=== PATIENT | female | born 1930 | race Caucasian/White ===

== ENCOUNTER → 2016-06-08 | Outpatient (CLI) | payer MEDICARE, OTHER ==
--- NOTE | 2016-06-08 15:10 | WOMENS IMAGING REPORT ---
EXAM DESCRIPTION: RIGHT SCREENING MAMMO W/CAD COMPLETED DATE/TIME: 06/08/2016 11:21 am REASON FOR STUDY: Z12.31 ROUTINE SCREENING MAMMO Z12.31 ENCNTR SCREEN MAMMOGRAM FOR MALIGNANT NEOPL ASM OF ARIADNE COMPARISON: Multiple since 2009 TECHNIQUE: Standard craniocaudal and mediolateral oblique views of the breast recorded using digital acquisition. LIMITATIONS: None. FINDINGS: BREAST: Right No masses, calcifications or architectural distortion. No areas of suspicion. Read with the assistance of CAD. .[facility] - R2 Cenova Version 1.3 .[facility] Imaging - R2 Cenova Version 1.3 .[facility] - R2 Cenova Version 2.4 .[facility] [place] - R2 Cenova Version 2.4 .[facility] - R2 [employer] Version 9.2 BREAST DENSITY: a. The breasts are almost entirely fatty. BIRAD: 1 NEGATIVE RECOMMENDATION: RECOMMENDATION: ROUTINE SCREENING. COMMENT: PATIENT NOTIFIED BY LETTER. The [employer] recommends an annual screening mammogram for women aged 40 years or over. Each patient will receive a reminder prior to the anniversary date of her mammogram. The [place] [employer] (ACR) has developed recommendations for screening MRI of the breast s in certain patient populations, to be used in conjunction with mammography. Breast MRI surveillance may be appropriate for women with more than 20% lifetime risk of developing breast cancer as determi milka by genetic testing, significant family history of the disease, or history of mantle radiation for Hodgkins Disease. ACR Practice Guidelines 2007. TECHNICAL DOCUMENTATION: FINDING NUMBER: (1) ASSESSMENT: (1) JOB ID: [id number] [employer]- All Rights Reserved
== END ==
LOC: WI 10:46
PROVIDERS: ATTEND Internal Medicine Geriatric Medicine
DX: Z12.31 Encounter for screening mammogram for malignant neoplasm of breast (principal)
CPT/HCPCS: G0202-52

== ENCOUNTER 2016-10-08 21:39 | Emergency (ER) | payer MEDICARE, OTHER ==
--- NOTE | 2016-10-09 00:38 | RADIOLOGY REPORT (SQ) ---
EXAM DESCRIPTION: CHEST PA/LAT COMPLETED DATE/TIME: 10/09/2016 12:00 am REASON FOR STUDY: productive cough COMPARISON: Chest x-ray 06/09/2010. EXAM PARAMETERS: NUMBER OF VIEWS: two views TECHNIQUE: Digital Frontal and Lateral radiographic views of the chest acquired. RADIATION DOSE: NA LIMITATIONS: none FINDINGS: LUNGS AND PLEURA: No consolidation, pleural effusion or pneumothorax. Hyperlucent lungs, suggestive of emphysema. MEDIASTINUM AND HILAR STRUCTURES: No masses or contour abnormalities. HEART AND VASCULAR STRUCTURES: Heart normal size. No evidence for failure. BONES: There is osteopenia. Multilevel degenerative changes are seen in the spine. Degenerative rhiannon nges also seen at the bilateral shoulders, left more than right. HARDWARE: Surgical clips at the left axilla. IMPRESSION: Emphysema. Otherwise, no acute radiographic finding in the chest. TECHNICAL DOCUMENTATION: JOB ID: [id number] [employer]- All Rights Reserved
[2016-10-09] MEDS ORDERED: AZITHROMYCIN 250 MG TABLET PO ONE (02:12)
[2016-10-09] MEDS ORDERED: GUAIFENESIN 600 MG TABLET.SA PO ONE (02:12)
--- NOTE | 2016-10-09 02:12 | ER Document Report ---
ED General - General Chief Complaint: Abdominal Pain >50 Stated Complaint: HEADACHE,COUGH Time Seen by Provider: 10/09/16 01:59 Mode of Arrival: Ambulatory Information source: Patient TRAVEL OUTSIDE OF THE [place] IN LAST 30 DAYS: No - HPI Notes: 86-year-old female with a 2 day history of cough and gradual onset and progression of pleuritic right greater than left chest wall pain associated with the cough. The patient reports no difficulty breathing or nausea or vomiting. She denies any abdominal pain, more pointing to her lower rib cage as the location of discomfort. At home she had a fever with temperature 100.4, but arrives afebrile. - Related Data Allergies/Adverse Reactions: codeine [Codeine] Allergy (Mild, Verified 08/22/12 09:02) meperidine HCl [From Demerol] Allergy (Mild, Verified 08/22/12 09:02) Penicillins Allergy (Mild, Verified 08/24/12 17:03) ITCHING Past Medical History - Social History Smoking Status: Never Smoker Frequency of alcohol use: None Drug Abuse: None Lives with: Alone Family History: Reviewed & Not Pertinent Patient has suicidal ideation: No Patient has homicidal ideation: No - Past Medical History Cardiac Medical History: Reports: Hx Hypertension Renal/ Medical History: Denies: Hx Peritoneal Dialysis Malignancy Medical History: Reports: Hx Breast Cancer Musculoskeltal Medical History: Reports Hx Arthritis Past Surgical History: Reports: Hx Appendectomy, Hx Hysterectomy, Hx Mastectomy - left, Hx Orthopedic Surgery - bilateral hip and left knee replacements Review of Systems - Review of Systems Notes: REVIEW OF SYSTEMS: CONSTITUTIONAL : Denies sweats. Denies recent illness. EENT: Denies eye, ear, throat, or mouth pain or symptoms. Denies nasal or sinus congestion or discharge. Denies throat, tongue, or mouth swelling or difficulty swallowing. CARDIOVASCULAR: Denies palpitations or racing or irregular heart beat. Denies ankle edema. RESPIRATORY: Denies shortness of breath, difficulty breathing, or wheezing. GASTROINTESTINAL: Denies abdominal pain or distention. Denies nausea, vomiting , or diarrhea. Denies blood in vomitus, stools, or per rectum. Denies black, tarry stools. Denies constipation. GENITOURINARY: Denies difficulty urinating, painful urination, burning, frequency, blood in urine, or discharge. FEMALE GENITOURINARY: Denies vaginal bleeding, heavy or abnormal periods, irregular periods. Denies vaginal discharge or odor. MUSCULOSKELETAL: Denies back or neck pain or stiffness. Denies joint pain or swelling. SKIN: Denies rash, lesions or sores. HEMATOLOGIC : Denies easy bruising or bleeding. LYMPHATIC: Denies swollen, enlarged glands. NEUROLOGICAL: Denies confusion or altered mental status. Denies passing out or loss of consciousness. Denies dizziness or lightheadedness. Denies headache. Denies weakness or paralysis or loss of use of either side. Denies problems with gait or speech. Denies sensory loss, numbness, or tingling. Denies seizures. PSYCHIATRIC: Denies anxiety or stress. Denies depression, suicidal ideation, or homicidal ideation. ALL OTHER SYSTEMS REVIEWED AND NEGATIVE. Dictation was performed using [employer] voice recognition software Physical Exam - Vital signs Vitals: Temp Pulse Resp BP Pulse Ox 97.8 F 87 16 115/63 93 10/08/16 21:41 10/08/16 21:41 10/08/16 21:41 10/08/16 21:41 10/08/16 21:41 - Notes Notes: PHYSICAL EXAMINATION: GENERAL: Well-appearing, well-nourished and in no acute distress. HEAD: Atraumatic, normocephalic. EYES: Pupils equal round and reactive to light, extraocular movements intact, conjunctiva are normal. ENT: oropharynx clear without exudates. Moist mucous membranes. Mild coryza noted. NECK: Normal range of motion, supple without lymphadenopathy LUNGS: Breath sounds clear to auscultation bilaterally and equal. No wheezes rales or rhonchi. Pain to the right lower costal margin right greater than left anteriorly and laterally. HEART: Regular rate and rhythm without murmurs ABDOMEN: Soft, nontender, nondistended abdomen. No guarding, no rebound. No masses appreciated. Female : deferred Musculoskeletal: Normal range of motion, no pitting or edema. No cyanosis. NEUROLOGICAL: Cranial nerves grossly intact. Normal speech, normal gait. Normal sensory, motor exams PSYCH: Normal mood, normal affect. SKIN: Warm, Dry, normal turgor, no rashes or lesions noted. Course - Re-evaluation Re-evalutation: 10/09/16 02:32 Chest x-ray negative for pneumonia. There is no hypoxia or wheezing noted on exam. No evidence for acute ID or ischemia or suggestion for cholecystitis or pulmonary embolus given the gradual onset of discomfort. Patient given Zithromax and Mucinex. 10/09/16 02:32 - Vital Signs Vital signs: Temp Pulse Resp BP Pulse Ox 97.8 F 87 16 115/63 93 10/08/16 21:41 10/08/16 21:41 10/08/16 21:41 10/08/16 21:41 10/08/16 21:41 - EKG Interpretation by Nc EKG shows normal: Sinus rhythm Additional EKG results interpreted by me: 10/09/16 02:21 EKG as interpreted by mi showed normal sinus rhythm heart rate of 87. There is no gross evidence for acute ID or ischemia noted. There is no change from previous EKG reviewed from 08/22/12. Discharge - Discharge Clinical Impression: Bronchitis, Pleurisy Condition: Stable Disposition: HOME, SELF-CARE Instructions: Pleurisy ([facility]), Bronchitis ([facility]) Additional Instructions: Take Tylenol as directed for fever or pain. Prescriptions: Azithromycin [Zithromax 250 mg Tablet] 250 mg PO DAILY #4 tablet Guaifenesin [Mucinex] 600 mg PO BIDP PRN #20 tablet.sa PRN Reason: Referrals: GRISELDA EVANS MD [Primary Care Provider] - Follow up as needed
[2016-10-09 02:36] VITALS: BP 105/54
--- NOTE | 2016-10-09 08:50 | EKG REPORT ---
SEVERITY:- BORDERLINE ECG - SINUS RHYTHM BORDERLINE T ABNORMALITIES, ANTERIOR LEADS : Confirmed by: Ekaterina Abraham 09-Oct-2016 08:48:55
== END 2016-10-09 02:37 | disposition home or self-care (01) ==
LOC: ER 21:39
DX: J40 Bronchitis, not specified as acute or chronic (principal); R09.1 Pleurisy; R51 Headache; R10.9 Unspecified abdominal pain; I10 Essential (primary) hypertension; Z88.6 Allergy status to analgesic agent; Z88.0 Allergy status to penicillin; Z85.3 Personal history of malignant neoplasm of breast; Z90.710 Acquired absence of both cervix and uterus; Z90.12 Acquired absence of left breast and nipple; Z96.643 Presence of artificial hip joint, bilateral; Z96.652 Presence of left artificial knee joint
CPT/HCPCS: 93005; 99284; 71020; 93010; A9270 ×2

== ENCOUNTER → 2017-06-09 | Outpatient (CLI) | payer MEDICARE, OTHER ==
--- NOTE | 2017-06-10 07:48 | WOMENS IMAGING REPORT ---
EXAM DESCRIPTION: 3D SCREENING MAMMO RIGHT COMPLETED DATE/TIME: 06/09/2017 9:09 am REASON FOR STUDY: ROUTINE SCREENING; Z12.31 Z12.31 ENCNTR SCREEN MAMMOGRAM FOR MALIGNANT NEOPLASM O F ARIADNE COMPARISON: Multiple since 2008 TECHNIQUE: Standard craniocaudal and mediolateral oblique views of the breast recorded using digital acquisition and breast tomosynthesis. LIMITATIONS: None. FINDINGS: BREAST: right No masses, calcifications or architectural distortion. No areas of suspicion. Read with the assistance of CAD. .[facility] - R2 Cenova Version 1.3 .[facility] - R2 Cenova Version 1.3 .[facility] - R2 Cenova Version 2.4 .[facility] [place] R2 Cenova Version 2.4 .[facility] - R2 Director Of Respiratory Therapy Version 9.2 IMPRESSION: NORMAL MAMMOGRAM. BIRADS 1. BREAST DENSITY: b. There are scattered areas of fibroglandular density. BIRAD: 1 Negative RECOMMENDATION: RECOMMENDATION: ROUTINE SCREENING. Please continue bilateral screening tomosynthesis in May 2018 COMMENT: The patient has been notified of the results by letter per MQSA requirements. Additional no tification policies are in place for contacting patient with suspicious or incomplete findings. Quality ID #[id number]: The [employer] recommends an annual screening mammogram for women aged 40 years or over. This facility utilizes a reminder system to ensure that all patients receive reminder letters, and/or direct phone calls for appointments. This includes reminders for routine scr eening mammograms, diagnostic mammograms, or other Breast Imaging Interventions when appropriate. Th is patient will be placed in the appropriate reminder system. The [employer] (ACR) has developed recommendations for screening MRI of the breast s in certain patient populations, to be used in conjunction with mammography. Breast MRI surveillance may be appropriate for women with more than 20% lifetime risk of developing breast cancer as determi milka by genetic testing, significant family history of the disease, or history of mantle radiation for Hodgkins Disease. ACR Practice Guidelines 2008. DBT Technology DBT is a type of tomographic mammography. With conventional mammography, overlapping breast tissue ma y make lesions difficult to detect, even with good compression. DBT uses an x-ray tube that rotates a round the breast, taking images at different angles. These images are then combined to create thin sl ices of the breast that the radiologist can view as a 3D reconstruction. The [employer] unit can perform full-field digital mammograms (2D imaging); or DBT (3D imaging); or both, in a combination mode that quickly performs both the mammogram and the tomosynthesis scan while the breast is still compressed. PQRS 6045F: Fluoroscopic imaging is not utilized for breast tomosynthesis. TECHNICAL DOCUMENTATION: FINDING NUMBER: (1) ASSESSMENT: (1) JOB ID: [id number] [employer]- All Rights Reserved
== END ==
LOC: WI 08:52
PROVIDERS: ATTEND Internal Medicine Geriatric Medicine
DX: Z12.31 Encounter for screening mammogram for malignant neoplasm of breast (principal)

== ENCOUNTER 2017-07-29 14:16 | Inpatient (IN) | payer MEDICARE, OTHER ==
--- NOTE | 2017-07-29 14:36 | ER Document Report ---
ED Extremity Problem, Lower - General Chief Complaint: Knee Pain Stated Complaint: FALL,LEFT KNEE PAIN Time Seen by Provider: 07/29/17 14:35 Notes: The patient is an 78-year-old female, past medical history left knee replacement , presents with left knee pain after she fell directly on the knee after getting out of her van and tripping on a tree branch. She was given 100 mcg of fentanyl with some relief of her pain, but it has returned. She denies open wounds, hip pain, LOC, head injury, numbness or tingling. TRAVEL OUTSIDE OF THE [place] IN LAST 30 DAYS: No - Related Data Allergies/Adverse Reactions: codeine [Codeine] Allergy (Mild, Verified 08/22/12 09:02) meperidine HCl [From Demerol] Allergy (Mild, Verified 08/22/12 09:02) Penicillins Allergy (Mild, Verified 08/24/12 17:03) ITCHING Past Medical History - General Information source: Patient - Social History Smoking Status: Unknown if Ever Smoked Family History: Reviewed & Not Pertinent - Past Medical History Cardiac Medical History: Reports: Hx Hypertension Renal/ Medical History: Denies: Hx Peritoneal Dialysis Malignancy Medical History: Reports: Hx Breast Cancer Musculoskeltal Medical History: Reports Hx Arthritis Past Surgical History: Reports: Hx Appendectomy, Hx Hysterectomy, Hx Mastectomy - left, Hx Orthopedic Surgery - bilateral hip and left knee replacements Review of Systems - Review of Systems Notes: REVIEW OF SYSTEMS: CONSTITUTIONAL: -fevers, -chills EENT: -eye pain, -difficulty swallowing, -nasal congestion CARDIOVASCULAR: -chest pain, -syncope. RESPIRATORY: -cough, -SOB GASTROINTESTINAL: -abdominal pain, -nausea, -vomiting, -diarrhea GENITOURINARY: -dysuria, -hematuria MUSCULOSKELETAL: +left knee pain, -back pain, -neck pain SKIN: -rash or skin lesions. HEMATOLOGIC: -easy bruising or bleeding. LYMPHATIC: -swollen, enlarged glands. NEUROLOGICAL: -altered mental status or loss of consciousness, -headache, - neurologic symptoms PSYCHIATRIC: -anxiety, -depression. ALL OTHER SYSTEMS REVIEWED AND NEGATIVE. Physical Exam - Vital signs Vitals: Temp Pulse Resp BP Pulse Ox 97.4 F 89 18 126/53 H 98 07/29/17 15:00 07/29/17 15:00 07/29/17 15:00 07/29/17 15:00 07/29/17 15:00 - Notes Notes: PHYSICAL EXAMINATION: GENERAL: Very uncomfortable. HEAD: Atraumatic, normocephalic. EYES: Pupils equal round and reactive to light, extraocular movements intact, sclera anicteric, conjunctiva are normal. ENT: nares patent, oropharynx clear without exudates. Moist mucous membranes. NECK: Normal range of motion, supple without lymphadenopathy LUNGS: Breath sounds clear to auscultation bilaterally and equal. No wheezes rales or rhonchi. HEART: Regular rate and rhythm without murmurs ABDOMEN: Soft, nontender, normoactive bowel sounds. No guarding, no rebound. No masses appreciated. EXTREMITIES: Tenderness over anterior left knee. Deformity of left knee and appears that her hardware is dislodged. No pitting or edema. No cyanosis. Strong distal pulses and sensation intact. Able to wiggle toes. NEUROLOGICAL: Cranial nerves grossly intact. Normal speech. Normal sensory and motor exams. PSYCH: Normal mood, normal affect. SKIN: Warm, Dry, normal turgor, no rashes or lesions noted. Course - Re-evaluation Re-evalutation: Pt with left femur fracture above her knee prostheses. She is NV intact distally. She is still in pain despite the 100 of fentanyl by EMS and 8 mg morphine. Will provide her with a dose of Dilaudid and begin to obtain preop labs, EKG and chest x-ray. 07/29/17 15:[address] Parra. He will consult on the patient. Will keep patient NPO after midnight. Spoke to patient's PMD, Dr. Burgess, and he will admit patient. - Vital Signs Vital signs: Temp Pulse Resp BP Pulse Ox 97.4 F 89 18 126/53 H 98 07/29/17 15:00 07/29/17 15:00 07/29/17 15:00 07/29/17 15:00 07/29/17 15:00 - Diagnostic Test Radiology reviewed: Image reviewed, Reports reviewed Radiology results interpreted by me: Knee x-ray: comminuted left distal femur fracture CXR: NAD - EKG Interpretation by Me EKG shows normal: Sinus rhythm, [place], Intervals, QRS Complexes, ST-T Waves Rate: Normal Discharge - Discharge Clinical Impression: Femur fracture, left Qualifiers: Encounter type: initial encounter Femur location: distal Fracture type: closed Fracture morphology: other fracture Qualified Code(s): S72.492A - Other fracture of lower end of left femur, initial encounter for closed fracture Condition: Stable Disposition: ADMITTED INPATIENT Admitting Provider: Aditya Unit Admitted: Medical Floor
[2017-07-29] MEDS ORDERED: MORPHINE SULFATE 10 MG/ML INJ IV ONE (14:40)
[2017-07-29] MEDS ORDERED: HYDROMORPHONE HCL INJ/PF 2 MG/ML AMPULE IV ONE (15:24)
--- NOTE | 2017-07-29 15:43 | RADIOLOGY REPORT (SQ) ---
EXAM DESCRIPTION: KNEE LEFT 2 VIEWS COMPLETED DATE/TIME: 07/29/2017 3:29 pm REASON FOR STUDY: left knee pain COMPARISON: None. NUMBER OF VIEWS: Two views. TECHNIQUE: AP and lateral radiographic images acquired of the left knee. LIMITATIONS: None. FINDINGS: MINERALIZATION: Normal. BONES: There is a total knee arthroplasty. There is a comminuted fracture of the distal femur at the arthroplasty. JOINT: No effusion. SOFT TISSUES: No soft tissue swelling. No radio-opaque foreign body. OTHER: No other significant finding. IMPRESSION: Comminuted fracture of the distal femur. TECHNICAL DOCUMENTATION: JOB ID: [id number] [employer]- All Rights Reserved Reading location - IP/workstation name: [email or web address]
--- NOTE | 2017-07-29 15:51 | RADIOLOGY REPORT (SQ) ---
EXAM DESCRIPTION: CHEST SINGLE VIEW COMPLETED DATE/TIME: 07/29/2017 3:42 pm REASON FOR STUDY: pre-op COMPARISON: Chest films 10/08/2016, 06/09/2010 EXAM PARAMETERS: NUMBER OF VIEWS: One view. TECHNIQUE: Single frontal radiographic view of the chest acquired. RADIATION DOSE: NA LIMITATIONS: Lordotic chest FINDINGS: LUNGS AND PLEURA: Lungs are hyperinflated and hyperlucent from obstructive disease. No ac bad [place] band infiltrates. No pleural effusion or pneumothorax. MEDIASTINUM AND HILAR STRUCTURES: No masses. Contour normal. HEART AND VASCULAR STRUCTURES: Cardiac silhouette size accentuated by patient positioning BONES: No acute findings. HARDWARE: None in the chest. OTHER: No other significant finding. IMPRESSION: NO ACUTE RADIOGRAPHIC FINDING IN THE CHEST. TECHNICAL DOCUMENTATION: JOB ID: [id number] [employer]- All Rights Reserved Reading location - IP/workstation name: [email or web address]
[2017-07-29] MEDS ORDERED: MORPHINE SULFATE 10 MG/ML INJ IV PRN (16:06)
[2017-07-29 16:31] LABS: ABSOLUTE BASOPHILS # (AUTO) 0.1 10^3/uL (0.0-0.2); ABSOLUTE EOSINOPHILS # (AUTO) 0.1 10^3/uL (0.0-0.6); ABSOLUTE MONOCYTES (AUTO) 0.8 10^3/uL (0.1-1.4); ABSOLUTE NEUT (AUTO) 8.9 10^3/uL (1.7-8.2); BASOPHILS % (AUTO) 0.6 % (0-2); EOSINOPHILS % (AUTO) 0.5 % (0-6); HEMATOCRIT 36.1 % (36.0-47.0); HEMOGLOBIN 12.3 g/dL (12.0-15.5); MEAN CORPUSCULAR HEMOGLOBIN 29.3 pg (27.0-33.4); MEAN CORPUSCULAR HGB CONC 34.2 g/dL (32.0-36.0); MEAN CORPUSCULAR VOLUME 86 fl (80-97); MONOCYTES % (AUTO) 7.7 % (3-13); PLATELET COUNT 278 10^3/uL (150-450); RED CELL DISTRIBUTION WIDTH 13.6 % (11.5-14.0); SEGMENTED NEUTROPHILS % (AUTO) 82.2 % (42-78); TOTAL CELLS COUNTED % (AUTO) 100 %; WHITE BLOOD COUNT 10.9 10^3/uL (4.0-10.5)
[2017-07-29 16:44] LABS: INTERNATIONAL RATION (INR) 0.98; PROTHROMBIN TIME 13.7 SEC (11.4-15.4)
[2017-07-29 16:45] LABS: PARTIAL THROMBOPLASTIN TIME 29.5 SEC (23.5-35.8)
[2017-07-29 16:50] LABS: ALANINE AMINOTRANSFERASE 26 U/L (9-52); ALBUMIN 3.5 g/dL (3.5-5.0); ALKALINE PHOSPHATASE 67 U/L (38-126); ANION GAP 6 (5-19); ASPARTATE AMINO TRANSFERASE 21 U/L (14-36); BILIRUBIN,DIRECT 0.4 mg/dL (0.0-0.4); BILIRUBIN,TOTAL 0.7 mg/dL (0.2-1.3); BLOOD UREA NITROGEN 17 mg/dL (7-20); CALCIUM 9.1 mg/dL (8.4-10.2); CARBON DIOXIDE 27 mmol/L (22-30); CHLORIDE 108 mmol/L (98-107); GLUCOSE 109 mg/dL (75-110); POTASSIUM 4.4 mmol/L (3.6-5.0); TOTAL PROTEIN 6.2 g/dL (6.3-8.2)
--- NOTE | 2017-07-29 19:52 | PDOC H&P ---
History of Present Illness Admission Date/PCP: 07/29/17 15:38 GRISELDA CRISTINA Patient complains of: Fall with subsequent left knee pain History of Present Illness: CHERY YOUNGBLOOD is a 86 year old female known to my practice presented to the ED with complaint of left knee pain and inability to walk. Patient reported falling after stumbling on a tree branch in her attempt to get off her van earlier today. She subsequently developed her presenting symptoms. She denied any preceding or associated chest pain, palpitation, dizziness, vertigo, loss of consciousness or headache. She reported some amount nausea with administration of opiate for pain management. 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 Past Medical History Cardiac Medical History: Reports: Hypertension Malignancy Medical History: Reports: Breast Cancer Musculoskeltal Medical History: Reports: Arthritis Past Surgical History Past Surgical History: Reports: Appendectomy, Hysterectomy, Mastectomy - left, Orthopedic Surgery - bilateral hip and left knee replacements Social History Smoking Status: Never Smoker Frequency of Alcohol Use: None Hx Recreational Drug Use: No Drugs: None - Advance Directive Resuscitation Status: Full Code Family History Family History: Reviewed & Not Pertinent Parental Family History Reviewed: Yes Children Family History Reviewed: Yes Sibling(s) Family History Reviewed.: Yes Medication/Allergy Home Medications: Amlodipine/Atorvastatin [Amlodipine-Atorvast 5-40 mg] 1 tab PO QHS 08/22/12 Atenolol [Tenormin 50 mg Tablet] 50 mg PO WBRKFST 08/22/12 Aspirin [Aspirin EC] 81 mg PO DAILY 07/29/17 Loratadine [Claritin 10 mg Tablet] 10 mg PO DAILY 07/29/17 Pentoxifylline [Trental 400 mg Tablet.sa] 400 mg PO BIDBS 07/29/17 Allergies/Adverse Reactions: codeine [Codeine] Allergy (Mild, Verified 08/22/12 09:02) meperidine HCl [From Demerol] Allergy (Mild, Verified 08/22/12 09:02) Penicillins Allergy (Mild, Verified 08/24/12 17:03) ITCHING Review of Systems Constitutional: ABSENT: chills, fever(s), headache(s), weight gain, weight loss Eyes: PRESENT: visual disturbances - use corrective glasses Ears: ABSENT: hearing changes Nose, Mouth, and Throat: ABSENT: as per HPI, headache(s), mouth pain, sore throat, vertigo, other Cardiovascular: ABSENT: chest pain, dyspnea on exertion, edema, orthropnea, palpitations Respiratory: ABSENT: cough, hemoptysis Gastrointestinal: ABSENT: abdominal pain, constipation, diarrhea, hematemesis, hematochezia, nausea, vomiting Musculoskeletal: PRESENT: deformity - related to multiple joint involvement with arthritis Integumentary: ABSENT: rash, wounds Neurological: PRESENT: abnormal gait - due to pain in left knee joint. ABSENT: as per HPI, abnormal movements, abnormal speech, confusion, convulsions, dizziness, focal weakness, frequent falls, lack of coordination, memory loss, numbness, paresthesias, restless legs, syncope, tingling, tremor(s), vertigo, weakness, other Psychiatric: ABSENT: anxiety, depression, homidical ideation, suicidal ideation Endocrine: ABSENT: cold intolerance, heat intolerance, polydipsia, polyuria Hematologic/Lymphatic: ABSENT: easy bleeding, easy bruising, lymphadenopathy Allergic/Immunologic: ABSENT: seasonal rhinorrhea Physical Exam Vital Signs: Temp Pulse Resp BP Pulse Ox 98.4 F 75 18 120/53 L 96 07/29/17 17:20 07/29/17 17:20 07/29/17 17:20 07/29/17 17:20 07/29/17 17:20 Intake & Output 07/28/17 07/29/17 07/30/17 06:59 06:59 06:59 Weight 173 kg General appearance: PRESENT: cooperative, mild distress - due to ongoing left knee joint pain Head exam: PRESENT: atraumatic, normocephalic Eye exam: PRESENT: conjunctiva pink, EOMI, PERRLA. ABSENT: scleral icterus Ear exam: PRESENT: normal external ear exam Mouth exam: PRESENT: moist, tongue midline Throat exam: ABSENT: post pharyngeal erythema, tonsillar erythema, tonsillar exudate, tonsillogmegaly, other Neck exam: PRESENT: full ROM. ABSENT: carotid bruit, JVD, lymphadenopathy, thyromegaly Respiratory exam: PRESENT: clear to auscultation brian Cardiovascular exam: PRESENT: RRR. ABSENT: diastolic murmur, rubs, systolic murmur Pulses: PRESENT: normal dorsalis pedis pul, +2 pedal pulses bilateral Vascular exam: PRESENT: normal capillary refill. ABSENT: pallor GI/Abdominal exam: PRESENT: normal bowel sounds, soft. ABSENT: distended, guarding, mass, organolmegaly, rebound, tenderness Rectal exam: PRESENT: deferred Extremities exam: PRESENT: tenderness - left knee joint. ABSENT: pedal edema Musculoskeletal exam: PRESENT: deformity - left knee joint, tenderness - left knee joint. ABSENT: ambulatory - due to left knee pain, full ROM - across left knee joint Neurological exam: PRESENT: alert, awake, oriented to person, oriented to place , oriented to time, oriented to situation, CN II-XII grossly intact. ABSENT: motor sensory deficit Psychiatric exam: PRESENT: appropriate affect, normal mood. ABSENT: homicidal ideation, suicidal ideation Skin exam: PRESENT: dry, intact, warm. ABSENT: cyanosis, rash Results Laboratory Results: 07/29/17 16:03 07/29/17 16:03 07/29/17 07/29/17 16:03 16:03 WBC 10.9 H RBC 4.20 Hgb 12.3 Hct 36.1 MCV 86 MCH 29.3 MCHC 34.2 RDW 13.6 Plt Count 278 Seg Neutrophils % 82.2 H Lymphocytes % 9.0 L Monocytes % 7.7 Eosinophils % 0.5 Basophils % 0.6 Absolute Neutrophils 8.9 H Absolute Lymphocytes 1.0 Absolute Monocytes 0.8 Absolute Eosinophils 0.1 Absolute Basophils 0.1 Sodium 141.0 Potassium 4.4 Chloride 108 H Carbon Dioxide 27 Anion Gap 6 BUN 17 Creatinine 0.68 Est GFR ( Amer) > 60 Est GFR (Non-Af Amer) > 60 Glucose 109 Calcium 9.1 Total Bilirubin 0.7 AST 21 ALT 26 Alkaline Phosphatase 67 Total Protein 6.2 L Albumin 3.5 Impressions: Knee X-Ray 07/29/17 14:35 IMPRESSION: Comminuted fracture of the distal femur. Chest X-Ray 07/29/17 15:22 IMPRESSION: NO ACUTE RADIOGRAPHIC FINDING IN THE CHEST. Assessment & Plan - Diagnosis (1) Fall due to stumbling Qualifiers: Encounter type: initial encounter Qualified Code(s): W01.0XXA - Fall on same level from slipping, tripping and stumbling without subsequent striking against object, initial encounter Is this a current diagnosis for this admission?: Yes Plan: See admitting attending physician orders. (2) Fracture of distal femur Qualifiers: Encounter type: initial encounter Fracture type: closed Fracture morphology: unspecified fracture morphology Laterality: left Qualified Code( s): S72.402A - Unspecified fracture of lower end of left femur, initial encounter for closed fracture Is this a current diagnosis for this admission?: Yes Plan: See admitting attending physician orders. (3) HTN (hypertension) Qualifiers: Hypertension type: essential hypertension Qualified Code(s): I10 - Essential (primary) hypertension Is this a current diagnosis for this admission?: Yes Plan: See admitting attending physician orders. (4) COPD (chronic obstructive pulmonary disease) Qualifiers: COPD type: unspecified COPD Qualified Code(s): J44.9 - Chronic obstructive pulmonary disease, unspecified Is this a current diagnosis for this admission?: Yes Plan: See admitting attending physician orders. (5) HLD (hyperlipidemia) Qualifiers: Hyperlipidemia type: pure hypercholesterolemia Qualified Code(s): E78.00 - Pure hypercholesterolemia, unspecified; E78.0 - Pure hypercholesterolemia Is this a current diagnosis for this admission?: Yes Plan: See admitting attending physician orders. (6) Osteoarthritis involving multiple joints on both sides of body Is this a current diagnosis for this admission?: Yes Plan: See admitting attending physician orders. - Time Time Spent: 50 to 70 Minutes Medications reviewed and adjusted accordingly: Yes Anticipated discharge: SNF - for short term rehabilitation Within: Other - Inpatient Certification Based on my medical assessment, after consideration of the patient's comorbidities, presenting symptoms, or acuity I expect that the services needed warrant INPATIENT care.: Yes I certify that my determination is in accordance with my understanding of Medicare's requirements for reasonable and necessary INPATIENT services [42 CFR 412.3e].: Yes Medical Necessity: Need Close Monitoring Due to Risk of Patient Decompensation, Need For IV Fluids, Need For Continuous Telemetry Monitoring, Need for Pain Control, Need for Surgery, Risk of Complication if Not Cared For in Hospital Post Hospital Care: D/C or Transfer Summary - Plan Summary Plan Summary: See admitting attending physician orders.
[2017-07-29] MEDS ORDERED: NORMAL SALINE 1000 ML 1,000 ML IV PRN (19:55)
--- NOTE | 2017-07-29 19:59 | PDOC CONSULTATION ---
History of Present Illness Admission Date/PCP: 07/29/17 15:38 GRISELDA EVANS Patient complains of: Left lower extremity pain and deformity. History of Present Illness: 86-year-old female status post fall with inability to weight-bear and deformity of the left knee. Patient states she had that left total knee arthroplasty placed about 10 years ago back in [place]. Denies any numbness or tingling or paresthesias. Denies any left knee pain prior to the fall. Upon arrival to [facility] evaluation and x-rays confirm the patient has a comminuted periprosthetic femur fractures around the left total knee. Past Medical History Cardiac Medical History: Reports: Hypertension Malignancy Medical History: Reports: Breast Cancer Musculoskeltal Medical History: Reports: Arthritis Past Surgical History Past Surgical History: Reports: Appendectomy, Hysterectomy, Mastectomy - left, Orthopedic Surgery - bilateral hip and left knee replacements Social History Smoking Status: Never Smoker Frequency of Alcohol Use: None Hx Recreational Drug Use: No Drugs: None - Advance Directive Resuscitation Status: Full Code Family History Family History: Reviewed & Not Pertinent Parental Family History Reviewed: No Children Family History Reviewed: No Sibling(s) Family History Reviewed.: No Medication/Allergy Home Medications: Amlodipine/Atorvastatin [Amlodipine-Atorvast 5-40 mg] 1 tab PO QHS 08/22/12 Atenolol [Tenormin 50 mg Tablet] 50 mg PO WBRKFST 08/22/12 Aspirin [Aspirin EC] 81 mg PO DAILY 07/29/17 Loratadine [Claritin 10 mg Tablet] 10 mg PO DAILY 07/29/17 Pentoxifylline [Trental 400 mg Tablet.sa] 400 mg PO BIDBS 07/29/17 Allergies/Adverse Reactions: codeine [Codeine] Allergy (Mild, Verified 08/22/12 09:02) meperidine HCl [From Demerol] Allergy (Mild, Verified 08/22/12 09:02) Penicillins Allergy (Mild, Verified 08/24/12 17:03) ITCHING Review of Systems All systems: as per PMH Physical Exam Vital Signs: Temp Pulse Resp BP Pulse Ox 36.9 C 75 18 120/53 L 96 07/29/17 17:20 07/29/17 17:20 07/29/17 17:20 07/29/17 17:20 07/29/17 17:20 Intake & Output 07/28/17 07/29/17 07/30/17 06:59 06:59 06:59 Weight 78.653 kg General appearance: PRESENT: no acute distress Adult Front & Back Image: 1 - Tender palpation and swelling around the left knee and distal thigh. Warm to touch. Mild deformity. Neurovascular intact distally with good sensation to light touch and capillary refill. Results Laboratory Results: 07/29/17 16:03 07/29/17 16:03 07/29/17 07/29/17 16:03 16:03 WBC 10.9 H RBC 4.20 Hgb 12.3 Hct 36.1 MCV 86 MCH 29.3 MCHC 34.2 RDW 13.6 Plt Count 278 Seg Neutrophils % 82.2 H Lymphocytes % 9.0 L Monocytes % 7.7 Eosinophils % 0.5 Basophils % 0.6 Absolute Neutrophils 8.9 H Absolute Lymphocytes 1.0 Absolute Monocytes 0.8 Absolute Eosinophils 0.1 Absolute Basophils 0.1 Sodium 141.0 Potassium 4.4 Chloride 108 H Carbon Dioxide 27 Anion Gap 6 BUN 17 Creatinine 0.68 Est GFR ( Amer) > 60 Est GFR (Non-Af Amer) > 60 Glucose 109 Calcium 9.1 Total Bilirubin 0.7 AST 21 ALT 26 Alkaline Phosphatase 67 Total Protein 6.2 L Albumin 3.5 Impressions: Knee X-Ray 07/29/17 14:35 IMPRESSION: Comminuted fracture of the distal femur. Chest X-Ray 07/29/17 15:22 IMPRESSION: NO ACUTE RADIOGRAPHIC FINDING IN THE CHEST. Status: Image reviewed by me Assessment & Plan - Diagnosis (1) Periprosthetic fracture around internal prosthetic left knee joint Qualifiers: Encounter type: initial encounter Qualified Code(s): M97.12XA - Periprosthetic fracture around internal prosthetic left knee joint, initial encounter; T84.043A - Periprosthetic fracture around internal prosthetic left knee joint, initial encounter Is this a current diagnosis for this admission?: Yes Plan: 86-year-old female with comminuted periprosthetic fracture around the femoral component of her left total knee arthroplasty. Injury occurred status post fall. The patient need to proceed with open reduction internal fixation of periprosthetic femur fracture on the left. Risk and benefits were discussed and the patient agreed and consented. In the meantime continue knee immobilizer and ice and elevation. Will type and screen her for the OR tomorrow and plan to proceed with surgery anytime afternoon therefore she will be n.p.o. after midnight and started on IV fluids.
--- NOTE | 2017-07-29 20:03 | RADIOLOGY REPORT (SQ) ---
EXAM DESCRIPTION: CT LT LOWER EXTREMITY WITHOUT COMPLETED DATE/TIME: 07/29/2017 7:49 pm REASON FOR STUDY: periprosthetic fracture COMPARISON: None. TECHNIQUE: Axial imaging performed through the left knee with reformatted coronal and sagittal imagi ng windowed for bone and soft tissues. Images saved to PACS. 3D IMAGING: Were 3D images as MIP, SSD, or volume rendering performed at the work station? Yes. All CT scanners at this facility use dose modulation, iterative reconstruction, and/or weight based d osing when appropriate to reduce radiation dose to as low as reasonably achievable (ALARA). [facility]: Dose Right [facility]: CareDose [facility]: Dose Right [facility]: Teradose 4D [facility]: [employer] LIMITATIONS: None. RADIATION DOSE: CT Rad equipment meets quality standard of care and radiation dose reduction techniq ues were employed. CTDIvol: 4.1 mGy. DLP: 123 mGy-cm. mGy. FINDINGS: There is a comminuted fracture in the distal left femoral metaphysis which is 1.5 cm media lly displaced and 1.0 cm anteriorly displaced. Multiple fracture fragments are present and there is approximately 6 to 8 mm of impaction into the superior aspect of the femoral arthroplasty component. The arthroplasty hardware is otherwise intact and normally aligned. OTHER: No other significant finding. IMPRESSION: There is a comminuted fracture in the distal left femoral metaphysis which is 1.5 cm med ially displaced and 1.0 cm anteriorly displaced. Multiple fracture fragments are present and there i s approximately 6 to 8 mm of impaction into the superior aspect of the femoral arthroplasty component . The arthroplasty hardware is otherwise intact and normally aligned. TECHNICAL DOCUMENTATION: JOB ID: [id number] [place]-72 Quality ID # [id number]: Final reports with documentation of one or more dose reduction techniques (e.g., Au tomated exposure control, adjustment of the mA and/or kV according to patient size, use of iterative reconstruction technique) 2010 [employer]- All Rights Reserved Reading location - IP/workstation name: [email or web address]
[2017-07-29] MEDS ORDERED: ONDANSETRON HCL INJ/PF 4 MG/2 ML SDV ONE (20:05)
[2017-07-29] MEDS: MORPHINE SULFATE 10 MG/ML INJ IV PRN (20:35)
--- NOTE | 2017-07-29 21:55 | EKG REPORT ---
SEVERITY:- NORMAL ECG - SINUS RHYTHM : Confirmed by: Ekaterina Abraham 29-Jul-2017 21:54:09
[2017-07-29] MEDS ORDERED: AMLODIPINE PO SCH (22:00)
[2017-07-29] MEDS ORDERED: ATORVASTATIN PO SCH (22:00)
[2017-07-29] MEDS: ATORVASTATIN CALCIUM 40 MG TABLET PO SCH (22:07)
[2017-07-29] MEDS: AMLODIPINE BESYLATE 5 MG TABLET PO SCH (22:07)
[2017-07-30] MEDS: MORPHINE SULFATE 10 MG/ML INJ IV PRN ×3 (00:27→08:48)
[2017-07-30] MEDS: LANSOPRAZOLE 30 MG TAB.RAP.DR PO SCH (05:26)
[2017-07-30 07:38] LABS: ABSOLUTE LYMPHOCYTES (AUTO) 1.3 10^3/uL (0.5-4.7); ABSOLUTE MONOCYTES (AUTO) 1.3 10^3/uL (0.1-1.4); ABSOLUTE NEUT (AUTO) 9.3 10^3/uL (1.7-8.2); BASOPHILS % (AUTO) 0.2 % (0-2); EOSINOPHILS % (AUTO) 0.3 % (0-6); HEMATOCRIT 27.9 % (36.0-47.0); MEAN CORPUSCULAR HEMOGLOBIN 29.6 pg (27.0-33.4); MEAN CORPUSCULAR HGB CONC 34.5 g/dL (32.0-36.0); MEAN CORPUSCULAR VOLUME 86 fl (80-97); PLATELET COUNT 236 10^3/uL (150-450); RED BLOOD COUNT 3.25 10^6/uL (3.72-5.28); RED CELL DISTRIBUTION WIDTH 13.4 % (11.5-14.0); SEGMENTED NEUTROPHILS % (AUTO) 77.5 % (42-78); TOTAL CELLS COUNTED % (AUTO) 100 %
[2017-07-30 07:45] LABS: HEMOGLOBIN 9.6 g/dL (12.0-15.5)
[2017-07-30 07:58] LABS: ANION GAP 5 (5-19); BLOOD UREA NITROGEN 20 mg/dL (7-20); CALCIUM 8.9 mg/dL (8.4-10.2); CARBON DIOXIDE 27 mmol/L (22-30); CHLORIDE 107 mmol/L (98-107); GLUCOSE 99 mg/dL (75-110); POTASSIUM 4.6 mmol/L (3.6-5.0); SODIUM 139.4 mmol/L (137-145)
[2017-07-30] MEDS: ATENOLOL 50 MG TABLET PO SCH (08:46)
[2017-07-30] MEDS: ONDANSETRON HCL INJ/PF 4 MG/2 ML SDV IV PRN (08:48)
--- NOTE | 2017-07-30 09:55 | RADIOLOGY REPORT (SQ) ---
EXAM DESCRIPTION: WRIST LEFT 2 VIEWS COMPLETED DATE/TIME: 07/30/2017 9:07 am REASON FOR STUDY: L wrist swelling/pain COMPARISON: Left wrist three views NUMBER OF VIEWS: Left wrist two views TECHNIQUE: AP and lateral radiographic images acquired of the left wrist. LIMITATIONS: None. FINDINGS: MINERALIZATION: Osteoporotic BONES: No acute fracture or dislocation. No worrisome bone lesions. Normal alignment. SOFT TISSUES: Diffuse soft tissue swelling. OTHER: There is advanced osteoarthritis at the 1st carpometacarpal joint, with a [id number] appeara nce and intra-articular loose bodies. IMPRESSION: Advanced osteoarthritis at the 1st carpometacarpal joint No acute fracture TECHNICAL DOCUMENTATION: JOB ID: [id number] [employer]- All Rights Reserved Reading location - IP/workstation name: [email or web address]
[2017-07-30] MEDS ORDERED: ENOXAPARIN SODIUM INJ 40 MG/0.4 ML DISP.SYRIN SUBCUT SCH (10:00)
[2017-07-30] MEDS ORDERED: MORPHINE SULFATE 10 MG/ML INJ ONE (11:52)
[2017-07-30] MEDS ORDERED: KETAMINE HCL INJ 500 MG/10 ML VIAL ONE (12:23)
[2017-07-30] MEDS ORDERED: FENTANYL CITRATE INJ/PF 100 MCG/2 ML AMPUL ONE ×2 (12:23)
[2017-07-30] MEDS ORDERED: MIDAZOLAM 2 MG/2 ML INJ ONE (12:23)
[2017-07-30] MEDS ORDERED: ACETAMINOPHEN 100 ML IV ONE (12:24)
[2017-07-30] MEDS ORDERED: PROPOFOL INJ 200 MG/20 ML VIAL IV ONE (12:24)
[2017-07-30] MEDS ORDERED: DEXMEDETOMIDINE INJ 80 MCG/20 ML VIAL IV ONE (12:55)
[2017-07-30] MEDS ORDERED: EPHEDRINE SULFATE INJ 50 MG/1 ML AMPULE ONE (12:55)
[2017-07-30] MEDS ORDERED: CEFAZOLIN INJ 1 GM VIAL ONE (13:05)
[2017-07-30] MEDS ORDERED: DEXAMETHASONE SOD PHOSPHATE INJ 4 MG/1 ML VIAL ONE (13:26)
[2017-07-30] MEDS ORDERED: ONDANSETRON HCL INJ/PF 4 MG/2 ML SDV ONE (13:26)
[2017-07-30] MEDS ORDERED: LIDOCAINE 2% INJ-PF (20 MG/ML) 2 ML AMPUL ONE (13:26)
[2017-07-30] MEDS ORDERED: SUCCINYLCHOLINE CHLORIDE INJ 200 MG/10 ML VIAL ONE (13:26)
[2017-07-30] MEDS ORDERED: PHENYLEPHRINE HCL INJ/PF 10 MG/1 ML SDV ONE (13:26)
[2017-07-30] MEDS ORDERED: METOCLOPRAMIDE HCL INJ/PF 10 MG/2 ML SDV ONE (13:26)
[2017-07-30] MEDS ORDERED: FENTANYL CITRATE INJ/PF 100 MCG/2 ML AMPUL IV PRN ×3 (15:10)
[2017-07-30] MEDS ORDERED: MEPERIDINE HCL/PF INJ 25 MG/1 ML DISP.SYRIN IV PRN (15:10)
[2017-07-30] MEDS ORDERED: ONDANSETRON HCL INJ/PF 4 MG/2 ML SDV IV PRN ×2 (15:10→16:55)
[2017-07-30] MEDS ORDERED: OXYCODONE-ACETAMINOPHEN 5-325 MG TABLET PO PRN ×4 (15:10→16:58)
[2017-07-30] MEDS ORDERED: PROMETHAZINE HCL INJ 25 MG/1 ML VIAL IV PRN ×2 (15:10)
[2017-07-30] MEDS ORDERED: DIPHENHYDRAMINE HCL 50 MG/ML VIAL IV PRN (15:10)
[2017-07-30] MEDS ORDERED: POTASSI CL 20 MEQ/D5NS 1L 20 MEQ/1,000 ML RTUINJ IV PRN (16:46)
[2017-07-30] MEDS ORDERED: MAG HYDROX/AL HYDROX/SIMETH SUSP 30 ML UDCUP PO PRN (16:55)
[2017-07-30] MEDS ORDERED: NORMAL SALINE 250 ML IV PRN (17:05)
--- NOTE | 2017-07-30 18:20 | RADIOLOGY REPORT (SQ) ---
EXAM DESCRIPTION: NO CHG FLUORO; FEMUR LEFT COMPLETED DATE/TIME: 07/30/2017 6:03 pm REASON FOR STUDY: ORIF LEFT DISTAL FEMUR COMPARISON: None. FLUOROSCOPY TIME: 3.3 minutes 14 Images saved to PACS LIMITATIONS: None. PROCEDURE: ORIF half distal femoral fracture. FINDINGS: Images obtained with fluoro document the open reduction and internal fixation. A medullar y maira extends down to the knee. This is secured by a transverse screw. Additional cannulated screws are present in the distal femur at the knee. IMPRESSION: ORIF distal femoral fracture. Refer to operative note for further detail. COMMENT: PQRS 6045F: Fluoroscopy time of the procedure is documented in the report. TECHNICAL DOCUMENTATION: JOB ID: [id number] [employer]- All Rights Reserved Reading location - IP/workstation name: [email or web address]
--- NOTE | 2017-07-30 18:20 | RADIOLOGY REPORT (SQ) ---
EXAM DESCRIPTION: NO CHG FLUORO; FEMUR LEFT COMPLETED DATE/TIME: 07/30/2017 6:03 pm REASON FOR STUDY: ORIF LEFT DISTAL FEMUR COMPARISON: None. FLUOROSCOPY TIME: 3.3 minutes 14 Images saved to PACS LIMITATIONS: None. PROCEDURE: ORIF half distal femoral fracture. FINDINGS: Images obtained with fluoro document the open reduction and internal fixation. A medullar y maira extends down to the knee. This is secured by a transverse screw. Additional cannulated screws are present in the distal femur at the knee. IMPRESSION: ORIF distal femoral fracture. Refer to operative note for further detail. COMMENT: PQRS 6045F: Fluoroscopy time of the procedure is documented in the report. TECHNICAL DOCUMENTATION: JOB ID: [id number] [employer]- All Rights Reserved Reading location - IP/workstation name: [email or web address]
--- NOTE | 2017-07-30 18:57 | PDOC PROGRESS REPORT ---
Subjective Progress Note for:: 07/30/17 Subjective:: Patient seen post operative period in her room. s/p distal comminuted displaced femoral fracture ORIF procedure. Denied any current pain at site of surgery. No chest pain or difficulty with breathing. Oxygen saturation in low 90 range on supplementation at 4L/min. No nausea or vomiting. She is schedule for 2 units PRBC transfusion. Reason For Visit: FALL DUE TO STUMBLING; LEFT CLOSED DISTAL FEMORAL Physical Exam Vital Signs: Temp Pulse Resp BP Pulse Ox 97.7 F 80 13 110/47 L 94 07/30/17 18:00 07/30/17 18:00 07/30/17 18:00 07/30/17 18:00 07/30/17 18:00 Intake & Output 07/29/17 07/30/17 07/31/17 06:59 06:59 06:59 Intake Total 0 2500 Output Total 500 Balance 0 2000 Weight 78.653 kg General appearance: PRESENT: cooperative, well-developed, well-nourished Head exam: PRESENT: atraumatic, normocephalic Eye exam: PRESENT: conjunctiva pink, EOMI, PERRLA. ABSENT: scleral icterus Mouth exam: PRESENT: moist Respiratory exam: PRESENT: clear to auscultation brian Cardiovascular exam: PRESENT: RRR. ABSENT: diastolic murmur, rubs, systolic murmur GI/Abdominal exam: PRESENT: normal bowel sounds, soft. ABSENT: distended, guarding, mass, organolmegaly, rebound, tenderness Extremities exam: PRESENT: other - external immobilizer to left lower extremities.. ABSENT: pedal edema Neurological exam: PRESENT: alert, awake, oriented to person, oriented to place , oriented to time, oriented to situation, CN II-XII grossly intact. ABSENT: motor sensory deficit Skin exam: PRESENT: dry, warm, other - surgical site dressing intact.. ABSENT: cyanosis, rash Results Laboratory Results: 07/30/17 06:59 07/30/17 06:59 07/29/17 07/30/17 07/30/17 20:55 06:59 06:59 WBC 12.0 H RBC 3.25 L Hgb 9.6 L D Hct 27.9 L MCV 86 MCH 29.6 MCHC 34.5 RDW 13.4 Plt Count 236 Seg Neutrophils % 77.5 Lymphocytes % 11.0 L Monocytes % 11.0 Eosinophils % 0.3 Basophils % 0.2 Absolute Neutrophils 9.3 H Absolute Lymphocytes 1.3 Absolute Monocytes 1.3 Absolute Eosinophils 0.0 Absolute Basophils 0.0 Sodium 139.4 Potassium 4.6 Chloride 107 Carbon Dioxide 27 Anion Gap 5 BUN 20 Creatinine 0.72 Est GFR ( Amer) > 60 Est GFR (Non-Af Amer) > 60 Glucose 99 Calcium 8.9 Blood Type B POSITIVE Antibody Screen NEGATIVE Impressions: Lower Extremity CT 07/29/17 00:00 IMPRESSION: There is a comminuted fracture in the distal left femoral metaphysis which is 1.5 cm medially displaced and 1.0 cm anteriorly displaced. Multiple fracture fragments are present and there is approximately 6 to 8 mm of impaction into the superior aspect of the femoral arthroplasty component. The arthroplasty hardware is otherwise intact and normally aligned. Knee X-Ray 07/29/17 14:35 IMPRESSION: Comminuted fracture of the distal femur. Chest X-Ray 07/29/17 15:22 IMPRESSION: NO ACUTE RADIOGRAPHIC FINDING IN THE CHEST. Femur X-Ray 07/30/17 00:00 IMPRESSION: ORIF distal femoral fracture. Refer to operative note for further detail. Fluoroscopy 07/30/17 00:00 IMPRESSION: ORIF distal femoral fracture. Refer to operative note for further detail. Wrist X-Ray 07/30/17 08:36 IMPRESSION: Advanced osteoarthritis at the 1st carpometacarpal joint No acute fracture Assessment & Plan - Diagnosis (1) Fall due to stumbling Qualifiers: Encounter type: initial encounter Qualified Code(s): W01.0XXA - Fall on same level from slipping, tripping and stumbling without subsequent striking against object, initial encounter Is this a current diagnosis for this admission?: Yes (2) Fracture of distal femur Qualifiers: Encounter type: initial encounter Fracture type: closed Fracture morphology: unspecified fracture morphology Laterality: left Qualified Code( s): S72.402A - Unspecified fracture of lower end of left femur, initial encounter for closed fracture Is this a current diagnosis for this admission?: Yes (3) HTN (hypertension) Qualifiers: Hypertension type: essential hypertension Qualified Code(s): I10 - Essential (primary) hypertension Is this a current diagnosis for this admission?: Yes (4) COPD (chronic obstructive pulmonary disease) Qualifiers: COPD type: unspecified COPD Qualified Code(s): J44.9 - Chronic obstructive pulmonary disease, unspecified Is this a current diagnosis for this admission?: Yes (5) HLD (hyperlipidemia) Qualifiers: Hyperlipidemia type: pure hypercholesterolemia Qualified Code(s): E78.00 - Pure hypercholesterolemia, unspecified; E78.0 - Pure hypercholesterolemia Is this a current diagnosis for this admission?: Yes (6) Osteoarthritis involving multiple joints on both sides of body Is this a current diagnosis for this admission?: Yes - Time Time Spent with patient: 25-34 minutes Medications reviewed and adjusted accordingly: Yes Anticipated discharge: SNF - for short term rehabilitation Within: Other - Inpatient Certification Based on my medical assessment, after consideration of the patient's comorbidities, presenting symptoms, or acuity I expect that the services needed warrant INPATIENT care.: Yes I certify that my determination is in accordance with my understanding of Medicare's requirements for reasonable and necessary INPATIENT services [42 CFR 412.3e].: Yes Medical Necessity: Need Close Monitoring Due to Risk of Patient Decompensation, Need For IV Fluids, Need For Continuous Telemetry Monitoring, Need for Pain Control, Need for Surgery, Risk of Complication if Not Cared For in Hospital Post Hospital Care: D/C or Transfer Summary - Plan Summary Plan Summary: Continue on current management. I discussed issue of DVT prophylaxis with surgical team. She will start on Xarelto therapy. I will D/C Lovenox. Recommend bedside incentive spirometry usage to patient. Dr Beasley will cover my service till 08/02/2017.
[2017-07-30] MEDS: CEFAZOLIN 2 GM/D5W RTU 2 GM/50 ML RTUPB IV SCH ×2 (20:04→23:46)
[2017-07-30] MEDS: SENNOSIDES/DOCUSATE 8.6-50 MG 1 EACH TABLET PO SCH (20:06)
[2017-07-30] MEDS: RIVAROXABAN 10 MG TABLET PO SCH (22:19)
[2017-07-30] MEDS: ATORVASTATIN CALCIUM 40 MG TABLET PO SCH (22:19)
[2017-07-30] MEDS: AMLODIPINE BESYLATE 5 MG TABLET PO SCH (22:19)
[2017-07-31] MEDS ORDERED: VANCOMYCIN HCL 1,000 MG in DEXTROSE 5%-WATER 250 ML IV ONE (04:47)
[2017-07-31] MEDS: TRAMADOL HCL 50 MG TABLET PO PRN ×2 (05:38→11:53)
[2017-07-31] MEDS: LANSOPRAZOLE 30 MG TAB.RAP.DR PO SCH (05:38)
[2017-07-31 09:41] LABS: HEMATOCRIT 30.4 % (36.0-47.0); HEMOGLOBIN 10.6 g/dL (12.0-15.5); MEAN CORPUSCULAR HEMOGLOBIN 30.1 pg (27.0-33.4); MEAN CORPUSCULAR VOLUME 86 fl (80-97); PLATELET COUNT 180 10^3/uL (150-450); RED BLOOD COUNT 3.53 10^6/uL (3.72-5.28); RED CELL DISTRIBUTION WIDTH 13.7 % (11.5-14.0); WHITE BLOOD COUNT 13.9 10^3/uL (4.0-10.5)
[2017-07-31 10:00] LABS: ANION GAP 6 (5-19); BLOOD UREA NITROGEN 19 mg/dL (7-20); CALCIUM 8.7 mg/dL (8.4-10.2); CARBON DIOXIDE 26 mmol/L (22-30); CHLORIDE 105 mmol/L (98-107); GLUCOSE 127 mg/dL (75-110); POTASSIUM 4.5 mmol/L (3.6-5.0); SODIUM 136.5 mmol/L (137-145)
[2017-07-31] MEDS: ATENOLOL 50 MG TABLET PO SCH (10:48)
[2017-07-31] MEDS: PRENATAL VITAMIN W DHA CAPSULE PO SCH (10:48)
[2017-07-31] MEDS: CEFAZOLIN 2 GM/D5W RTU 2 GM/50 ML RTUPB IV SCH ×4 (10:49→23:22)
[2017-07-31] MEDS: SENNOSIDES/DOCUSATE 8.6-50 MG 1 EACH TABLET PO SCH ×2 (10:49→17:27)
[2017-07-31] MEDS: MORPHINE SULFATE 10 MG/ML INJ IV PRN ×2 (12:39→20:03)
--- NOTE | 2017-07-31 12:44 | PDOC PROGRESS REPORT ---
Subjective Progress Note for:: 07/31/17 Subjective:: Patient is currently doing fair Denied any chest pain denied any shortness of the breath No other events happened Reason For Visit: FALL DUE TO STUMBLING; LEFT CLOSED DISTAL FEMORAL Physical Exam Vital Signs: Temp Pulse Resp BP Pulse Ox 97.9 F 92 22 H 146/60 H 99 07/31/17 08:54 07/31/17 08:54 07/31/17 08:54 07/31/17 08:54 07/31/17 08:54 Intake & Output 07/30/17 07/31/17 08/01/17 06:59 06:59 06:59 Intake Total 0 3830 350 Output Total 500 Balance 0 3330 350 Weight 78.653 kg General appearance: PRESENT: no acute distress, well-developed, well-nourished Head exam: PRESENT: atraumatic, normocephalic Eye exam: PRESENT: conjunctiva pink, EOMI, PERRLA. ABSENT: scleral icterus Ear exam: PRESENT: normal external ear exam Mouth exam: PRESENT: moist, tongue midline Neck exam: PRESENT: full ROM. ABSENT: carotid bruit, JVD, lymphadenopathy, thyromegaly Respiratory exam: PRESENT: clear to auscultation brian Cardiovascular exam: PRESENT: RRR. ABSENT: diastolic murmur, rubs, systolic murmur Pulses: PRESENT: normal dorsalis pedis pul, +2 pedal pulses bilateral Vascular exam: PRESENT: normal capillary refill GI/Abdominal exam: PRESENT: normal bowel sounds, soft. ABSENT: distended, guarding, mass, organolmegaly, rebound, tenderness Rectal exam: PRESENT: deferred Extremities exam: ABSENT: pedal edema Neurological exam: PRESENT: alert, awake, oriented to person, oriented to place. ABSENT: motor sensory deficit Psychiatric exam: PRESENT: appropriate affect, normal mood. ABSENT: homicidal ideation, suicidal ideation Skin exam: PRESENT: dry, intact, warm. ABSENT: cyanosis, rash Results Laboratory Results: 07/31/17 09:18 07/31/17 09:18 07/29/17 07/31/17 07/31/17 20:55 09:18 09:18 WBC 13.9 H RBC 3.53 L Hgb 10.6 L Hct 30.4 L MCV 86 MCH 30.1 MCHC 35.0 RDW 13.7 Plt Count 180 Sodium 136.5 L Potassium 4.5 Chloride 105 Carbon Dioxide 26 Anion Gap 6 BUN 19 Creatinine 0.69 Est GFR ( Amer) > 60 Est GFR (Non-Af Amer) > 60 Glucose 127 H Calcium 8.7 Blood Type B POSITIVE Antibody Screen NEGATIVE Impressions: Lower Extremity CT 07/29/17 00:00 IMPRESSION: There is a comminuted fracture in the distal left femoral metaphysis which is 1.5 cm medially displaced and 1.0 cm anteriorly displaced. Multiple fracture fragments are present and there is approximately 6 to 8 mm of impaction into the superior aspect of the femoral arthroplasty component. The arthroplasty hardware is otherwise intact and normally aligned. Knee X-Ray 07/29/17 14:35 IMPRESSION: Comminuted fracture of the distal femur. Chest X-Ray 07/29/17 15:22 IMPRESSION: NO ACUTE RADIOGRAPHIC FINDING IN THE CHEST. Femur X-Ray 07/30/17 00:00 IMPRESSION: ORIF distal femoral fracture. Refer to operative note for further detail. Fluoroscopy 07/30/17 00:00 IMPRESSION: ORIF distal femoral fracture. Refer to operative note for further detail. Wrist X-Ray 07/30/17 08:36 IMPRESSION: Advanced osteoarthritis at the 1st carpometacarpal joint No acute fracture Assessment & Plan - Diagnosis (1) COPD (chronic obstructive pulmonary disease) Qualifiers: COPD type: unspecified COPD Qualified Code(s): J44.9 - Chronic obstructive pulmonary disease, unspecified Is this a current diagnosis for this admission?: Yes (2) Fall due to stumbling Qualifiers: Encounter type: initial encounter Qualified Code(s): W01.0XXA - Fall on same level from slipping, tripping and stumbling without subsequent striking against object, initial encounter Is this a current diagnosis for this admission?: Yes (3) Femur fracture, left Qualifiers: Encounter type: initial encounter Femur location: distal Fracture type: closed Fracture morphology: other fracture Qualified Code(s): S72.492A - Other fracture of lower end of left femur, initial encounter for closed fracture Is this a current diagnosis for this admission?: Yes (4) HLD (hyperlipidemia) Qualifiers: Hyperlipidemia type: pure hypercholesterolemia Qualified Code(s): E78.00 - Pure hypercholesterolemia, unspecified; E78.0 - Pure hypercholesterolemia Is this a current diagnosis for this admission?: Yes (5) HTN (hypertension) Qualifiers: Hypertension type: essential hypertension Qualified Code(s): I10 - Essential (primary) hypertension Is this a current diagnosis for this admission?: Yes (6) Osteoarthritis involving multiple joints on both sides of body Is this a current diagnosis for this admission?: Yes - Time Time Spent with patient: 15-24 minutes Medications reviewed and adjusted accordingly: Yes Anticipated discharge: Other Within: Other - Inpatient Certification Medical Necessity: Need Close Monitoring Due to Risk of Patient Decompensation 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
--- NOTE | 2017-07-31 18:43 | PDOC PROGRESS REPORT ---
Subjective Progress Note for:: 07/31/17 Subjective:: Patient is having lunch and states that the pain is on the control. Reason For Visit: FALL DUE TO STUMBLING; LEFT CLOSED DISTAL FEMORAL Physical Exam Vital Signs: Temp Pulse Resp BP Pulse Ox 36.8 C 81 20 135/48 H 100 07/31/17 15:25 07/31/17 15:25 07/31/17 15:25 07/31/17 15:25 07/31/17 15:25 Intake & Output 07/30/17 07/31/17 08/01/17 06:59 06:59 06:59 Intake Total 0 3830 350 Output Total 500 600 Balance 0 3330 -250 Weight 78.653 kg Adult Front & Back Image: 1 - Immobilizer arm. Dressing is dry clean and intact. Patient is neurovascular intact distally. Results Laboratory Results: 07/31/17 09:18 07/31/17 09:18 07/29/17 07/31/17 07/31/17 20:55 09:18 09:18 WBC 13.9 H RBC 3.53 L Hgb 10.6 L Hct 30.4 L MCV 86 MCH 30.1 MCHC 35.0 RDW 13.7 Plt Count 180 Sodium 136.5 L Potassium 4.5 Chloride 105 Carbon Dioxide 26 Anion Gap 6 BUN 19 Creatinine 0.69 Est GFR ( Amer) > 60 Est GFR (Non-Af Amer) > 60 Glucose 127 H Calcium 8.7 Blood Type B POSITIVE Antibody Screen NEGATIVE Impressions: Lower Extremity CT 07/29/17 00:00 IMPRESSION: There is a comminuted fracture in the distal left femoral metaphysis which is 1.5 cm medially displaced and 1.0 cm anteriorly displaced. Multiple fracture fragments are present and there is approximately 6 to 8 mm of impaction into the superior aspect of the femoral arthroplasty component. The arthroplasty hardware is otherwise intact and normally aligned. Knee X-Ray 07/29/17 14:35 IMPRESSION: Comminuted fracture of the distal femur. Chest X-Ray 07/29/17 15:22 IMPRESSION: NO ACUTE RADIOGRAPHIC FINDING IN THE CHEST. Femur X-Ray 07/30/17 00:00 IMPRESSION: ORIF distal femoral fracture. Refer to operative note for further detail. Fluoroscopy 07/30/17 00:00 IMPRESSION: ORIF distal femoral fracture. Refer to operative note for further detail. 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 Nonweightbearing with knee immobilizer on. DVT prophylaxis. PT with anticipated discharge to senior care facility. H&H is stable after transfusion.
[2017-07-31] MEDS: AMLODIPINE BESYLATE 5 MG TABLET PO SCH (23:22)
[2017-07-31] MEDS: ATORVASTATIN CALCIUM 40 MG TABLET PO SCH (23:22)
[2017-07-31] MEDS: RIVAROXABAN 10 MG TABLET PO SCH (23:23)
[2017-08-01] MEDS: TRAMADOL HCL 50 MG TABLET PO PRN ×3 (00:31→20:03)
[2017-08-01 06:04] LABS: HEMOGLOBIN 9.1 g/dL (12.0-15.5); MEAN CORPUSCULAR HEMOGLOBIN 30.3 pg (27.0-33.4); MEAN CORPUSCULAR VOLUME 87 fl (80-97); PLATELET COUNT 158 10^3/uL (150-450); RED CELL DISTRIBUTION WIDTH 13.8 % (11.5-14.0); WHITE BLOOD COUNT 10.6 10^3/uL (4.0-10.5)
[2017-08-01] MEDS: CEFAZOLIN 2 GM/D5W RTU 2 GM/50 ML RTUPB IV SCH (06:39)
[2017-08-01] MEDS: LANSOPRAZOLE 30 MG TAB.RAP.DR PO SCH (06:39)
--- NOTE | 2017-08-01 07:16 | PDOC PROGRESS REPORT ---
Subjective Progress Note for:: 08/01/17 Subjective:: Patient is currently doing well Patient's denied any chest pain denied any shortness of the breath Reason For Visit: FALL DUE TO STUMBLING; LEFT CLOSED DISTAL FEMORAL Physical Exam Vital Signs: Temp Pulse Resp BP Pulse Ox 98.4 F 74 14 114/40 L 94 08/01/17 04:08 08/01/17 04:08 08/01/17 04:08 08/01/17 04:08 08/01/17 04:08 Intake & Output 07/31/17 08/01/17 08/02/17 06:59 06:59 06:59 Intake Total 3830 840 Output Total 500 1950 Balance 3330 -1110 Weight 89.1 kg General appearance: PRESENT: no acute distress, well-developed, well-nourished Head exam: PRESENT: atraumatic, normocephalic Eye exam: PRESENT: conjunctiva pink, EOMI, PERRLA. ABSENT: scleral icterus Ear exam: PRESENT: normal external ear exam Mouth exam: PRESENT: moist, tongue midline Neck exam: PRESENT: full ROM. ABSENT: carotid bruit, JVD, lymphadenopathy, thyromegaly Respiratory exam: PRESENT: clear to auscultation brian Cardiovascular exam: PRESENT: RRR. ABSENT: diastolic murmur, rubs, systolic murmur Pulses: PRESENT: normal dorsalis pedis pul, +2 pedal pulses bilateral Vascular exam: PRESENT: normal capillary refill GI/Abdominal exam: PRESENT: normal bowel sounds, soft. ABSENT: distended, guarding, mass, organolmegaly, rebound, tenderness Rectal exam: PRESENT: deferred Extremities exam: ABSENT: pedal edema Additional comments: Left-sided dressing is intact Neurological exam: PRESENT: alert, awake, oriented to person, oriented to place , oriented to time, oriented to situation, CN II-XII grossly intact. ABSENT: motor sensory deficit Psychiatric exam: PRESENT: appropriate affect, normal mood. ABSENT: homicidal ideation, suicidal ideation Skin exam: PRESENT: dry, intact, warm. ABSENT: cyanosis, rash Results Laboratory Results: 08/01/17 05:37 07/31/17 09:18 07/31/17 07/31/17 08/01/17 09:18 09:18 05:37 WBC 13.9 H 10.6 H RBC 3.53 L 3.00 L Hgb 10.6 L 9.1 L Hct 30.4 L 26.0 L MCV 86 87 MCH 30.1 30.3 MCHC 35.0 35.0 RDW 13.7 13.8 Plt Count 180 158 Sodium 136.5 L Potassium 4.5 Chloride 105 Carbon Dioxide 26 Anion Gap 6 BUN 19 Creatinine 0.69 Est GFR ( Amer) > 60 Est GFR (Non-Af Amer) > 60 Glucose 127 H Calcium 8.7 Impressions: Lower Extremity CT 07/29/17 00:00 IMPRESSION: There is a comminuted fracture in the distal left femoral metaphysis which is 1.5 cm medially displaced and 1.0 cm anteriorly displaced. Multiple fracture fragments are present and there is approximately 6 to 8 mm of impaction into the superior aspect of the femoral arthroplasty component. The arthroplasty hardware is otherwise intact and normally aligned. Knee X-Ray 07/29/17 14:35 IMPRESSION: Comminuted fracture of the distal femur. Chest X-Ray 07/29/17 15:22 IMPRESSION: NO ACUTE RADIOGRAPHIC FINDING IN THE CHEST. Femur X-Ray 07/30/17 00:00 IMPRESSION: ORIF distal femoral fracture. Refer to operative note for further detail. Fluoroscopy 07/30/17 00:00 IMPRESSION: ORIF distal femoral fracture. Refer to operative note for further detail. Wrist X-Ray 07/30/17 08:36 IMPRESSION: Advanced osteoarthritis at the 1st carpometacarpal joint No acute fracture Assessment & Plan - Diagnosis (1) COPD (chronic obstructive pulmonary disease) Qualifiers: COPD type: unspecified COPD Qualified Code(s): J44.9 - Chronic obstructive pulmonary disease, unspecified Is this a current diagnosis for this admission?: Yes (2) Fall due to stumbling Qualifiers: Encounter type: initial encounter Qualified Code(s): W01.0XXA - Fall on same level from slipping, tripping and stumbling without subsequent striking against object, initial encounter Is this a current diagnosis for this admission?: Yes (3) Femur fracture, left Qualifiers: Encounter type: initial encounter Femur location: distal Fracture type: closed Fracture morphology: other fracture Qualified Code(s): S72.492A - Other fracture of lower end of left femur, initial encounter for closed fracture Is this a current diagnosis for this admission?: Yes (4) HLD (hyperlipidemia) Qualifiers: Hyperlipidemia type: pure hypercholesterolemia Qualified Code(s): E78.00 - Pure hypercholesterolemia, unspecified; E78.0 - Pure hypercholesterolemia Is this a current diagnosis for this admission?: Yes (5) HTN (hypertension) Qualifiers: Hypertension type: essential hypertension Qualified Code(s): I10 - Essential (primary) hypertension Is this a current diagnosis for this admission?: Yes (6) Osteoarthritis involving multiple joints on both sides of body Is this a current diagnosis for this admission?: Yes - Time Time Spent with patient: 15-24 minutes Medications reviewed and adjusted accordingly: Yes Anticipated discharge: Other Within: Other - Inpatient Certification Medical Necessity: Need Close Monitoring Due to Risk of Patient Decompensation 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
[2017-08-01] MEDS: ATENOLOL 50 MG TABLET PO SCH (09:27)
[2017-08-01] MEDS: SENNOSIDES/DOCUSATE 8.6-50 MG 1 EACH TABLET PO SCH ×2 (09:27→16:48)
[2017-08-01] MEDS: PRENATAL VITAMIN W DHA CAPSULE PO SCH (09:27)
[2017-08-01] MEDS: MORPHINE SULFATE 10 MG/ML INJ IV PRN (11:02)
[2017-08-01] MEDS: CEFAZOLIN SODIUM 2 GM in NORMAL SALINE 100 ML IV SCH ×2 (15:37→20:02)
[2017-08-01] MEDS: RIVAROXABAN 10 MG TABLET PO SCH (22:10)
[2017-08-01] MEDS: AMLODIPINE BESYLATE 5 MG TABLET PO SCH (22:11)
[2017-08-01] MEDS: ATORVASTATIN CALCIUM 40 MG TABLET PO SCH (22:11)
[2017-08-02] MEDS: CEFAZOLIN SODIUM 2 GM in NORMAL SALINE 100 ML IV SCH ×4 (03:00→21:11)
[2017-08-02] MEDS: LANSOPRAZOLE 30 MG TAB.RAP.DR PO SCH (04:59)
[2017-08-02 06:58] LABS: HEMATOCRIT 24.9 % (36.0-47.0); HEMOGLOBIN 8.7 g/dL (12.0-15.5); MEAN CORPUSCULAR HEMOGLOBIN 30.5 pg (27.0-33.4); MEAN CORPUSCULAR HGB CONC 34.8 g/dL (32.0-36.0); MEAN CORPUSCULAR VOLUME 88 fl (80-97); PLATELET COUNT 179 10^3/uL (150-450); RED BLOOD COUNT 2.84 10^6/uL (3.72-5.28); RED CELL DISTRIBUTION WIDTH 13.9 % (11.5-14.0); WHITE BLOOD COUNT 9.2 10^3/uL (4.0-10.5)
[2017-08-02 07:20] LABS: BLOOD UREA NITROGEN 17 mg/dL (7-20); CHLORIDE 102 mmol/L (98-107); GLUCOSE 105 mg/dL (75-110); POTASSIUM 4.3 mmol/L (3.6-5.0)
[2017-08-02 07:27] LABS: CARBON DIOXIDE 30 mmol/L (22-30); SODIUM 134.1 mmol/L (137-145)
[2017-08-02 07:29] LABS: ANION GAP 2 (5-19)
[2017-08-02] MEDS: SENNOSIDES/DOCUSATE 8.6-50 MG 1 EACH TABLET PO SCH ×2 (09:19→16:50)
[2017-08-02] MEDS: TRAMADOL HCL 50 MG TABLET PO PRN ×2 (09:20→23:40)
[2017-08-02] MEDS: ATENOLOL 50 MG TABLET PO SCH (09:20)
[2017-08-02] MEDS: PRENATAL VITAMIN W DHA CAPSULE PO SCH (09:20)
[2017-08-02] MEDS: MORPHINE SULFATE 10 MG/ML INJ IV PRN (09:47)
--- NOTE | 2017-08-02 12:42 | PDOC PROGRESS REPORT ---
Subjective Progress Note for:: 08/02/17 Subjective:: no issues overnight, pain controlled Reason For Visit: FALL DUE TO STUMBLING; LEFT CLOSED DISTAL FEMORAL Physical Exam Vital Signs: Temp Pulse Resp BP Pulse Ox 36.8 C 80 22 H 118/41 L 98 08/02/17 07:26 08/02/17 07:26 08/02/17 07:26 08/02/17 07:26 08/02/17 07:26 Intake & Output 08/01/17 08/02/17 08/03/17 06:59 06:59 06:59 Intake Total 840 835 330 Output Total 1950 1275 200 Balance -1110 -440 130 Weight 89.1 kg Adult Front & Back Image: 1 - KI on, Dressing dry clean and intact. NVI distally Results Laboratory Results: 08/02/17 05:37 08/02/17 05:37 08/02/17 08/02/17 05:37 05:37 WBC 9.2 RBC 2.84 L Hgb 8.7 L Hct 24.9 L MCV 88 MCH 30.5 MCHC 34.8 RDW 13.9 Plt Count 179 Sodium 134.1 L Potassium 4.3 Chloride 102 Carbon Dioxide 30 Anion Gap 2 L BUN 17 Creatinine 0.71 Est GFR ( Amer) > 60 Est GFR (Non-Af Amer) > 60 Glucose 105 Calcium 8.0 L Impressions: Lower Extremity CT 07/29/17 00:00 IMPRESSION: There is a comminuted fracture in the distal left femoral metaphysis which is 1.5 cm medially displaced and 1.0 cm anteriorly displaced. Multiple fracture fragments are present and there is approximately 6 to 8 mm of impaction into the superior aspect of the femoral arthroplasty component. The arthroplasty hardware is otherwise intact and normally aligned. Knee X-Ray 07/29/17 14:35 IMPRESSION: Comminuted fracture of the distal femur. Chest X-Ray 07/29/17 15:22 IMPRESSION: NO ACUTE RADIOGRAPHIC FINDING IN THE CHEST. Femur X-Ray 07/30/17 00:00 IMPRESSION: ORIF distal femoral fracture. Refer to operative note for further detail. Fluoroscopy 07/30/17 00:00 IMPRESSION: ORIF distal femoral fracture. Refer to operative note for further detail. Wrist X-Ray 07/30/17 08:36 IMPRESSION: Advanced osteoarthritis at the 1st carpometacarpal joint No acute fracture Assessment & Plan - Diagnosis (1) Periprosthetic fracture around internal prosthetic left knee joint Qualifiers: Encounter type: initial encounter Qualified Code(s): M97.12XA - Periprosthetic fracture around internal prosthetic left knee joint, initial encounter; T84.043A - Periprosthetic fracture around internal prosthetic left knee joint, initial encounter Is this a current diagnosis for this admission?: Yes - Plan Summary Plan Summary: NWB left LE D/C KI at discharge PT/OT Change dressing Monitor H/H
--- NOTE | 2017-08-02 18:50 | PDOC PROGRESS REPORT ---
Subjective Progress Note for:: 08/02/17 Subjective:: Reported significant constipation. No nausea, vomiting, or abdominal pain. No chest pain or difficulty with breathing. No fever or chills. Resolving leukocytosis. Remain on IV Ancef per orthopedic team input. Reason For Visit: INTRAMEDULLARY NAILING LEFT FEMUR FRACTURE Physical Exam Vital Signs: Temp Pulse Resp BP Pulse Ox 99.7 F 76 20 117/47 L 97 08/02/17 15:37 08/02/17 15:37 08/02/17 15:37 08/02/17 15:37 08/02/17 15:37 Intake & Output 08/01/17 08/02/17 08/03/17 06:59 06:59 06:59 Intake Total 935 995 9969 Output Total 1950 1275 600 Balance -1110 -440 420 Weight 89.1 kg Physical Exam: General appearance: PRESENT: cooperative, well-developed, well-nourished Head exam: PRESENT: atraumatic, normocephalic Eye exam: PRESENT: conjunctiva pink, EOMI, PERRLA. ABSENT: scleral icterus Mouth exam: PRESENT: moist Respiratory exam: PRESENT: clear to auscultation brian Cardiovascular exam: PRESENT: RRR. ABSENT: diastolic murmur, rubs, systolic murmur GI/Abdominal exam: PRESENT: normal bowel sounds, soft. ABSENT: distended, guarding, mass, organomegaly, rebound, tenderness Extremities exam: PRESENT: other - off external immobilizer for left lower extremities.. ABSENT: pedal edema Neurological exam: PRESENT: alert, awake, oriented to person, oriented to place , oriented to time, oriented to situation, CN II-XII grossly intact. ABSENT: motor sensory deficit Skin exam: PRESENT: dry, warm, other - surgical site dressing intact.. ABSENT: cyanosis, rash Results Laboratory Results: 08/02/17 05:37 08/02/17 05:37 08/02/17 08/02/17 05:37 05:37 WBC 9.2 RBC 2.84 L Hgb 8.7 L Hct 24.9 L MCV 88 MCH 30.5 MCHC 34.8 RDW 13.9 Plt Count 179 Sodium 134.1 L Potassium 4.3 Chloride 102 Carbon Dioxide 30 Anion Gap 2 L BUN 17 Creatinine 0.71 Est GFR ( Amer) > 60 Est GFR (Non-Af Amer) > 60 Glucose 105 Calcium 8.0 L Impressions: Lower Extremity CT 07/29/17 00:00 IMPRESSION: There is a comminuted fracture in the distal left femoral metaphysis which is 1.5 cm medially displaced and 1.0 cm anteriorly displaced. Multiple fracture fragments are present and there is approximately 6 to 8 mm of impaction into the superior aspect of the femoral arthroplasty component. The arthroplasty hardware is otherwise intact and normally aligned. Knee X-Ray 07/29/17 14:35 IMPRESSION: Comminuted fracture of the distal femur. Chest X-Ray 07/29/17 15:22 IMPRESSION: NO ACUTE RADIOGRAPHIC FINDING IN THE CHEST. Femur X-Ray 07/30/17 00:00 IMPRESSION: ORIF distal femoral fracture. Refer to operative note for further detail. Fluoroscopy 07/30/17 00:00 IMPRESSION: ORIF distal femoral fracture. Refer to operative note for further detail. Wrist X-Ray 07/30/17 08:36 IMPRESSION: Advanced osteoarthritis at the 1st carpometacarpal joint No acute fracture Assessment & Plan - Diagnosis (1) Fall due to stumbling Qualifiers: Encounter type: initial encounter Qualified Code(s): W01.0XXA - Fall on same level from slipping, tripping and stumbling without subsequent striking against object, initial encounter Is this a current diagnosis for this admission?: Yes (2) Fracture of distal femur Qualifiers: Encounter type: initial encounter Fracture type: closed Fracture morphology: unspecified fracture morphology Laterality: left Qualified Code( s): S72.402A - Unspecified fracture of lower end of left femur, initial encounter for closed fracture Is this a current diagnosis for this admission?: Yes (3) HTN (hypertension) Qualifiers: Hypertension type: essential hypertension Qualified Code(s): I10 - Essential (primary) hypertension Is this a current diagnosis for this admission?: Yes (4) COPD (chronic obstructive pulmonary disease) Qualifiers: COPD type: unspecified COPD Qualified Code(s): J44.9 - Chronic obstructive pulmonary disease, unspecified Is this a current diagnosis for this admission?: Yes (5) HLD (hyperlipidemia) Qualifiers: Hyperlipidemia type: pure hypercholesterolemia Qualified Code(s): E78.00 - Pure hypercholesterolemia, unspecified; E78.0 - Pure hypercholesterolemia Is this a current diagnosis for this admission?: Yes (6) Osteoarthritis involving multiple joints on both sides of body Is this a current diagnosis for this admission?: Yes (7) Constipation due to opioid therapy Is this a current diagnosis for this admission?: Yes Plan: See attending physician orders. - Time Time Spent with patient: 25-34 minutes Medications reviewed and adjusted accordingly: Yes Anticipated discharge: SNF Within: within 48 hours - Inpatient Certification Based on my medical assessment, after consideration of the patient's comorbidities, presenting symptoms, or acuity I expect that the services needed warrant INPATIENT care.: Yes I certify that my determination is in accordance with my understanding of Medicare's requirements for reasonable and necessary INPATIENT services [42 CFR 412.3e].: Yes Medical Necessity: Need Close Monitoring Due to Risk of Patient Decompensation, Need For IV Fluids, Need For Continuous Telemetry Monitoring, Need for Pain Control, Need for IV Antibiotics, Need for Surgery, Risk of Complication if Not Cared For in Hospital Post Hospital Care: D/C or Transfer Summary - Plan Summary Plan Summary: See attending physician orders.
[2017-08-02] MEDS ORDERED: BISACODYL 10 MG SUPP.RECT PR ONE (20:00)
[2017-08-02] MEDS ORDERED: MAGNESIUM CITRATE 296 ML BOTTLE PO ONE (20:00)
[2017-08-02] MEDS: AMLODIPINE BESYLATE 5 MG TABLET PO SCH (21:11)
[2017-08-02] MEDS: RIVAROXABAN 10 MG TABLET PO SCH (21:11)
[2017-08-02] MEDS: ATORVASTATIN CALCIUM 40 MG TABLET PO SCH (21:11)
[2017-08-03] MEDS: CEFAZOLIN SODIUM 2 GM in NORMAL SALINE 100 ML IV SCH ×4 (05:01→21:07)
[2017-08-03] MEDS: LANSOPRAZOLE 30 MG TAB.RAP.DR PO SCH (05:29)
[2017-08-03 05:59] LABS: BLOOD UREA NITROGEN 15 mg/dL (7-20); GLUCOSE 145 mg/dL (75-110); POTASSIUM 4.5 mmol/L (3.6-5.0)
[2017-08-03 06:06] LABS: CARBON DIOXIDE 32 mmol/L (22-30); CHLORIDE 99 mmol/L (98-107); SODIUM 132.9 mmol/L (137-145)
[2017-08-03 06:11] LABS: ANION GAP 3 (5-19)
[2017-08-03] MEDS: TRAMADOL HCL 50 MG TABLET PO PRN ×2 (07:27→17:48)
[2017-08-03] MEDS: ATENOLOL 50 MG TABLET PO SCH (07:36)
--- NOTE | 2017-08-03 08:19 | PDOC PROGRESS REPORT ---
Subjective Progress Note for:: 08/03/17 Subjective:: Slight relief of constipation since last clinical evaluation. No abdominal pain , nausea, or vomiting. No chest pain or difficulty with breathing. No fever or chills. Participating in physical therapy. Remain on IV Ancef coverage. Reason For Visit: INTRAMEDULLARY NAILING LEFT FEMUR FRACTURE Physical Exam Vital Signs: Temp Pulse Resp BP Pulse Ox 98.0 F 81 16 129/54 H 95 08/03/17 07:34 08/03/17 07:34 08/03/17 07:34 08/03/17 07:34 08/03/17 07:34 Intake & Output 08/02/17 08/03/17 08/04/17 06:59 06:59 06:59 Intake Total 835 1486 Output Total 1275 1125 Balance -440 361 Weight 89 kg Physical Exam: General appearance: PRESENT: cooperative, well-developed, well-nourished Head exam: PRESENT: atraumatic, normocephalic Eye exam: PRESENT: conjunctiva pink, EOMI, PERRLA. ABSENT: scleral icterus Mouth exam: PRESENT: moist Respiratory exam: PRESENT: clear to auscultation brian Cardiovascular exam: PRESENT: RRR. ABSENT: diastolic murmur, rubs, systolic murmur GI/Abdominal exam: PRESENT: normal bowel sounds, soft. ABSENT: distended, guarding, mass, organomegaly, rebound, tenderness Extremities exam: ABSENT: pedal edema Neurological exam: PRESENT: alert, awake, oriented to person, oriented to place , oriented to time, oriented to situation, CN II-XII grossly intact. ABSENT: motor sensory deficit Skin exam: PRESENT: dry, warm, other - surgical site dressing intact.. ABSENT: cyanosis, rash Results Laboratory Results: 08/02/17 05:37 08/03/17 05:18 08/03/17 05:18 Sodium 132.9 L Potassium 4.5 Chloride 99 Carbon Dioxide 32 H Anion Gap 3 L BUN 15 Creatinine 0.65 Est GFR ( Amer) > 60 Est GFR (Non-Af Amer) > 60 Glucose 145 H Calcium 8.0 L Impressions: Lower Extremity CT 07/29/17 00:00 IMPRESSION: There is a comminuted fracture in the distal left femoral metaphysis which is 1.5 cm medially displaced and 1.0 cm anteriorly displaced. Multiple fracture fragments are present and there is approximately 6 to 8 mm of impaction into the superior aspect of the femoral arthroplasty component. The arthroplasty hardware is otherwise intact and normally aligned. Knee X-Ray 07/29/17 14:35 IMPRESSION: Comminuted fracture of the distal femur. Chest X-Ray 07/29/17 15:22 IMPRESSION: NO ACUTE RADIOGRAPHIC FINDING IN THE CHEST. Femur X-Ray 07/30/17 00:00 IMPRESSION: ORIF distal femoral fracture. Refer to operative note for further detail. Fluoroscopy 07/30/17 00:00 IMPRESSION: ORIF distal femoral fracture. Refer to operative note for further detail. Wrist X-Ray 07/30/17 08:36 IMPRESSION: Advanced osteoarthritis at the 1st carpometacarpal joint No acute fracture Assessment & Plan - Diagnosis (1) Fall due to stumbling Qualifiers: Encounter type: initial encounter Qualified Code(s): W01.0XXA - Fall on same level from slipping, tripping and stumbling without subsequent striking against object, initial encounter Is this a current diagnosis for this admission?: Yes (2) Fracture of distal femur Qualifiers: Encounter type: initial encounter Fracture type: closed Fracture morphology: unspecified fracture morphology Laterality: left Qualified Code( s): S72.402A - Unspecified fracture of lower end of left femur, initial encounter for closed fracture Is this a current diagnosis for this admission?: Yes (3) HTN (hypertension) Qualifiers: Hypertension type: essential hypertension Qualified Code(s): I10 - Essential (primary) hypertension Is this a current diagnosis for this admission?: Yes (4) COPD (chronic obstructive pulmonary disease) Qualifiers: COPD type: unspecified COPD Qualified Code(s): J44.9 - Chronic obstructive pulmonary disease, unspecified Is this a current diagnosis for this admission?: Yes (5) HLD (hyperlipidemia) Qualifiers: Hyperlipidemia type: pure hypercholesterolemia Qualified Code(s): E78.00 - Pure hypercholesterolemia, unspecified; E78.0 - Pure hypercholesterolemia Is this a current diagnosis for this admission?: Yes (6) Osteoarthritis involving multiple joints on both sides of body Is this a current diagnosis for this admission?: Yes (7) Constipation due to opioid therapy Is this a current diagnosis for this admission?: Yes - Time Time Spent with patient: 25-34 minutes Medications reviewed and adjusted accordingly: Yes Anticipated discharge: SNF Within: within 48 hours - Inpatient Certification Based on my medical assessment, after consideration of the patient's comorbidities, presenting symptoms, or acuity I expect that the services needed warrant INPATIENT care.: Yes I certify that my determination is in accordance with my understanding of Medicare's requirements for reasonable and necessary INPATIENT services [42 CFR 412.3e].: Yes Medical Necessity: Need Close Monitoring Due to Risk of Patient Decompensation, Need For IV Fluids, Need For Continuous Telemetry Monitoring, Need for Pain Control, Need for IV Antibiotics, Risk of Complication if Not Cared For in Hospital Post Hospital Care: D/C or Transfer Summary - Plan Summary Plan Summary: D/C IV Ancef. Obtain CBC with diff. Repeat Mag Citrate for constipation. Continue other current medication management. Patient will transfer to SNF in next 24 hours if she remain afebrile.
[2017-08-03 08:40] LABS: HEMATOCRIT 23.6 % (36.0-47.0); HEMOGLOBIN 8.4 g/dL (12.0-15.5); MEAN CORPUSCULAR HEMOGLOBIN 30.5 pg (27.0-33.4); MEAN CORPUSCULAR HGB CONC 35.5 g/dL (32.0-36.0); MEAN CORPUSCULAR VOLUME 86 fl (80-97); PLATELET COUNT 191 10^3/uL (150-450); RED BLOOD COUNT 2.75 10^6/uL (3.72-5.28); RED CELL DISTRIBUTION WIDTH 13.8 % (11.5-14.0); WHITE BLOOD COUNT 8.3 10^3/uL (4.0-10.5)
[2017-08-03 08:57] LABS: ABSOLUTE MONOCYTES # (MANUAL) 0.8 10^3/uL (0.1-1.4); ABSOLUTE NEUTROPHILS# (MANUAL) 6.3 10^3/uL (1.7-8.2); BASOPHILS % (MANUAL) 0 % (0-2); EOSINOPHILS % (MANUAL) 2 % (0-6); LYMPHOCYTES % (MANUAL) 12 % (13-45); MONOCYTES % (MANUAL) 10 % (3-13); NUCLEATED RED BLOOD CELLS 1 /100 WBC (0); SEGMENTED NEUTROPHILS % (MAN) 76 % (42-78); TOTAL CELLS COUNTED 100
[2017-08-03 08:58] LABS: TOXIC GRANULATION 1+
[2017-08-03 08:59] LABS: OVALOCYTES SLIGHT; PLATELET COMMENT ADEQUATE; POIKILOCYTOSIS SLIGHT; POLYCHROMASIA SLIGHT
[2017-08-03] MEDS: SENNOSIDES/DOCUSATE 8.6-50 MG 1 EACH TABLET PO SCH ×2 (09:04→17:37)
[2017-08-03] MEDS: PRENATAL VITAMIN W DHA CAPSULE PO SCH (09:05)
[2017-08-03] MEDS ORDERED: MAGNESIUM CITRATE 296 ML BOTTLE PO ONE (09:15)
[2017-08-03] MEDS: ONDANSETRON HCL INJ/PF 4 MG/2 ML SDV IV PRN (11:01)
--- NOTE | 2017-08-03 13:09 | PDOC PROGRESS REPORT ---
Subjective Progress Note for:: 08/03/17 Subjective:: 86 yo white female s/p IM nail placement for left distal femoral fracture. Patient sitting upright in hospital bed preparing to brush her teeth with assistance of nursing staff. Patient reports she is comfortable and completed therapy today. Reason For Visit: INTRAMEDULLARY NAILING LEFT FEMUR FRACTURE Physical Exam Vital Signs: Temp Pulse Resp BP Pulse Ox 37.0 C 77 16 118/45 L 97 08/03/17 12:34 08/03/17 12:34 08/03/17 12:34 08/03/17 12:34 08/03/17 12:34 Intake & Output 08/02/17 08/03/17 08/04/17 06:59 06:59 06:59 Intake Total 835 1486 Output Total 1275 1125 Balance -440 361 Weight 89 kg General appearance: PRESENT: no acute distress, well-developed, well-nourished Head exam: PRESENT: atraumatic, normocephalic Eye exam: PRESENT: EOMI Mouth exam: PRESENT: moist Respiratory exam: PRESENT: unlabored Pulses: PRESENT: normal dorsalis pedis pul, +2 pedal pulses bilateral Vascular exam: PRESENT: normal capillary refill Additional comments: Patient sitting upright in hospital bed with billateral lower extremities in full extension. Knee imobilizer brace in place on left knee. This is removed and post op dressings are clean, dry and intact. These are left in place. There is minimal pedal edema and she is nontender to palpation grossly about the knee. Due to placement of knee immobilizer and non-weight bearing status, full ROM exam was not completed. No sensory or motor deficits noted, +2 dorsalis pedis pulses and distal neurovascular exam is intact. Musculoskeletal exam: PRESENT: ambulatory Additional comments: Patient has made progress with PT, completeing side steps and transfers to and from chair at the bedside. She is to remain NWB status on left leg for the next 6 weeks. She will continue to work with PT once discharged to [facility], yet will remain non-weightbearing on Left leg. Neurological exam: PRESENT: alert, awake, oriented to person, oriented to place , oriented to time, oriented to situation, CN II-XII grossly intact. ABSENT: motor sensory deficit Psychiatric exam: PRESENT: appropriate affect, normal mood. ABSENT: homicidal ideation, suicidal ideation Skin exam: PRESENT: dry, intact, warm. ABSENT: cyanosis, rash Results Laboratory Results: 08/03/17 05:18 08/03/17 05:18 08/03/17 08/03/17 05:18 05:18 WBC 8.3 RBC 2.75 L Hgb 8.4 L Hct 23.6 L MCV 86 MCH 30.5 MCHC 35.5 RDW 13.8 Plt Count 191 Seg Neutrophils % Not Reportable Lymphocytes % Not Reportable Monocytes % Not Reportable Eosinophils % Not Reportable Basophils % Not Reportable Absolute Neutrophils Not Reportable Absolute Lymphocytes Not Reportable Absolute Monocytes Not Reportable Absolute Eosinophils Not Reportable Absolute Basophils Not Reportable Sodium 132.9 L Potassium 4.5 Chloride 99 Carbon Dioxide 32 H Anion Gap 3 L BUN 15 Creatinine 0.65 Est GFR ( Amer) > 60 Est GFR (Non-Af Amer) > 60 Glucose 145 H Calcium 8.0 L Impressions: Lower Extremity CT 07/29/17 00:00 IMPRESSION: There is a comminuted fracture in the distal left femoral metaphysis which is 1.5 cm medially displaced and 1.0 cm anteriorly displaced. Multiple fracture fragments are present and there is approximately 6 to 8 mm of impaction into the superior aspect of the femoral arthroplasty component. The arthroplasty hardware is otherwise intact and normally aligned. Knee X-Ray 07/29/17 14:35 IMPRESSION: Comminuted fracture of the distal femur. Chest X-Ray 07/29/17 15:22 IMPRESSION: NO ACUTE RADIOGRAPHIC FINDING IN THE CHEST. Femur X-Ray 07/30/17 00:00 IMPRESSION: ORIF distal femoral fracture. Refer to operative note for further detail. Fluoroscopy 07/30/17 00:00 IMPRESSION: ORIF distal femoral fracture. Refer to operative note for further detail. 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 Patient makes progress with therapy completing side steps and transfers from bed to chair at the bedside while remaining non-weight bearing on left lower extremity. She will continue non-weight bearing status once transferred to SNF, and for 6 weeks post-operatively. She will follow up with Dr. Parra at [facility] 2 weeks post-operatively for staple removal and re- evaluation. Patient has been febrile throughout her stay at the hospital and hospitalist service had initial concern for possible infection. However, it was determined that there was no source of infection. If she remains afebrile over the next 12 hours, she will likely be discharged to [facility] snf facility tomorrow.
[2017-08-03] MEDS: AMLODIPINE BESYLATE 5 MG TABLET PO SCH (21:07)
[2017-08-03] MEDS: RIVAROXABAN 10 MG TABLET PO SCH (21:07)
[2017-08-03] MEDS: ATORVASTATIN CALCIUM 40 MG TABLET PO SCH (21:07)
[2017-08-04] MEDS: CEFAZOLIN SODIUM 2 GM in NORMAL SALINE 100 ML IV SCH ×2 (02:15→08:43)
[2017-08-04] MEDS: LANSOPRAZOLE 30 MG TAB.RAP.DR PO SCH (05:10)
[2017-08-04 06:02] LABS: BLOOD UREA NITROGEN 16 mg/dL (7-20); CHLORIDE 98 mmol/L (98-107); GLUCOSE 95 mg/dL (75-110); POTASSIUM 4.7 mmol/L (3.6-5.0)
[2017-08-04 06:07] LABS: CARBON DIOXIDE 32 mmol/L (22-30); SODIUM 132.9 mmol/L (137-145)
[2017-08-04 06:12] LABS: ANION GAP 3 (5-19)
--- NOTE | 2017-08-04 08:09 | PDOC TRANSFER SUMMARY ---
General - Admit/Disc Date/PCP Admission Date/Primary Care Provider: 07/29/17 15:38 GRISELDAIVA EVANS Discharge Date: 08/04/17 - Discharge Diagnosis (1) Fall due to stumbling Is this a current diagnosis for this admission?: Yes (2) Fracture of distal femur Is this a current diagnosis for this admission?: Yes (3) HTN (hypertension) Is this a current diagnosis for this admission?: Yes (4) COPD (chronic obstructive pulmonary disease) Is this a current diagnosis for this admission?: Yes (5) HLD (hyperlipidemia) Is this a current diagnosis for this admission?: Yes (6) Osteoarthritis involving multiple joints on both sides of body Is this a current diagnosis for this admission?: Yes (7) Constipation due to opioid therapy Is this a current diagnosis for this admission?: Yes (8) 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 - Additional Information Resuscitation Status: Do Not Resuscitate Prescriptions: Oxycodone HCl/Acetaminophen [Percocet 5-325 mg Tablet] 1 tab PO Q4HP PRN #30 tablet PRN Reason: Vit/Dha [ Multi + Dha Capsule] 1 cap PO DAILY #30 capsule Rivaroxaban [Xarelto 10 mg Tablet] 10 mg PO QHS 40 Days #40 tablet Sennosides/Docusate 8.6-50 mg [Senna Plus Tablet] 1 each PO BID #60 tablet Tramadol HCl [Ultram 50 mg Tablet] 50 mg PO Q6HP PRN #60 tablet PRN Reason: Home Medications: Amlodipine/Atorvastatin [Amlodipine-Atorvast 5-40 mg] 1 tab PO QHS 08/22/12 Atenolol [Tenormin 50 mg Tablet] 50 mg PO [id number] 08/22/12 Aspirin [Aspirin EC] 81 mg PO DAILY 07/29/17 Loratadine [Claritin 10 mg Tablet] 10 mg PO DAILY 07/29/17 Pentoxifylline [Trental 400 mg Tablet.sa] 400 mg PO BIDBS 07/29/17 Oxycodone HCl/Acetaminophen [Percocet 5-325 mg Tablet] 1 tab PO Q4HP PRN #30 tablet 08/04/17 Vit/Dha [ Multi + Dha Capsule] 1 cap PO DAILY #30 capsule 08/04 Rivaroxaban [Xarelto 10 mg Tablet] 10 mg PO QHS 40 Days #40 tablet 08/04/17 Sennosides/Docusate 8.6-50 mg [Senna Plus Tablet] 1 each PO BID #60 tablet 08/04 Tramadol HCl [Ultram 50 mg Tablet] 50 mg PO Q6HP PRN #60 tablet 08/04/17 History of Present Illness Admission Date/PCP: 07/29/17 15:38 GRISELDA CRISTINA Patient complains of: s/p Fall, Left knee pain History of Present Illness: CHERY YOUNGBLOOD is a 86 year old female known to my practice presented to the ED with complaint of left knee pain and inability to walk. Patient reported falling after stumbling on a tree branch in her attempt to get off her van earlier today. She subsequently developed her presenting symptoms. She denied any preceding or associated chest pain, palpitation, dizziness, vertigo, loss of consciousness or headache. She reported some amount nausea with administration of opiate for pain management. 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 Hospital Course Hospital Course: Patient was admitted for left distal femur fracture around internal knee joint prosthesis. She was operated upon on 07/30/17 with satisfactory post operative period. She was transfused 2 units of PRBC due to associated blood loss from her fracture and surgery. She is participating very well in physical therapy. She will be transferred to [facility] for short term rehabilitation today. Physical Exam Vital Signs: Temp Pulse Resp BP Pulse Ox 97.4 F 72 14 107/47 L 98 08/04/17 03:13 08/04/17 07:00 08/04/17 03:13 08/04/17 03:13 08/04/17 04:49 Intake & Output 08/03/17 08/04/17 08/05/17 06:59 06:59 06:59 Intake Total 1486 1685 Output Total 1125 Balance 361 1685 Weight 89 kg General appearance: PRESENT: cooperative, well-developed, well-nourished Head exam: PRESENT: atraumatic, normocephalic Eye exam: PRESENT: conjunctiva pink, EOMI, PERRLA. ABSENT: scleral icterus Mouth exam: PRESENT: moist Respiratory exam: PRESENT: clear to auscultation brian Cardiovascular exam: PRESENT: RRR. ABSENT: diastolic murmur, rubs, systolic murmur GI/Abdominal exam: PRESENT: normal bowel sounds, soft. ABSENT: distended, guarding, mass, organomegaly, rebound, tenderness Extremities exam: ABSENT: pedal edema Neurological exam: PRESENT: alert, awake, oriented to person, oriented to place , oriented to time, oriented to situation, CN II-XII grossly intact. ABSENT: motor sensory deficit Skin exam: PRESENT: dry, warm, other - surgical site dressing intact.. ABSENT: cyanosis, rash Results Laboratory Results: 08/03/17 05:18 08/04/17 04:59 08/03/17 08/04/17 05:18 04:59 WBC 8.3 RBC 2.75 L Hgb 8.4 L Hct 23.6 L MCV 86 MCH 30.5 MCHC 35.5 RDW 13.8 Plt Count 191 Seg Neutrophils % Not Reportable Lymphocytes % Not Reportable Monocytes % Not Reportable Eosinophils % Not Reportable Basophils % Not Reportable Absolute Neutrophils Not Reportable Absolute Lymphocytes Not Reportable Absolute Monocytes Not Reportable Absolute Eosinophils Not Reportable Absolute Basophils Not Reportable Sodium 132.9 L Potassium 4.7 Chloride 98 Carbon Dioxide 32 H Anion Gap 3 L BUN 16 Creatinine 0.63 Est GFR ( Amer) > 60 Est GFR (Non-Af Amer) > 60 Glucose 95 Calcium 8.0 L Impressions: Lower Extremity CT 07/29/17 00:00 IMPRESSION: There is a comminuted fracture in the distal left femoral metaphysis which is 1.5 cm medially displaced and 1.0 cm anteriorly displaced. Multiple fracture fragments are present and there is approximately 6 to 8 mm of impaction into the superior aspect of the femoral arthroplasty component. The arthroplasty hardware is otherwise intact and normally aligned. Knee X-Ray 07/29/17 14:35 IMPRESSION: Comminuted fracture of the distal femur. Chest X-Ray 07/29/17 15:22 IMPRESSION: NO ACUTE RADIOGRAPHIC FINDING IN THE CHEST. Femur X-Ray 07/30/17 00:00 IMPRESSION: ORIF distal femoral fracture. Refer to operative note for further detail. Fluoroscopy 07/30/17 00:00 IMPRESSION: ORIF distal femoral fracture. Refer to operative note for further detail. Wrist X-Ray 07/30/17 08:36 IMPRESSION: Advanced osteoarthritis at the 1st carpometacarpal joint No acute fracture Transfer Plan - Disposition Transfer Plan: Transfer to [facility] for rehabilitation. Follow up with orthopedic team as instructed upon discharge. Follow up with me in the office upon discharge from SNF. - Time Spent with Patient Time spent with patient: Greater than 30 Minutes - More than 50% of my time was spent in discussion with patient regarding post discharge care plan and follow up arrangement. Qualifiers - * PATEINT BEING DISCHARGED WITH ANY OF THE FOLLOWING DIAGNOSIS?: No Plan Discharge Plan: Discharge to [facility] today. Follow up with orthopedic team as instructed upon discharge. Follow up with me in the office upon discharge from the SNF. Call office for appointment before discharge from SNF.
[2017-08-04 08:26] VITALS: BP 125/47
[2017-08-04] MEDS: TRAMADOL HCL 50 MG TABLET PO PRN (08:44)
[2017-08-04] MEDS: ATENOLOL 50 MG TABLET PO SCH (08:44)
[2017-08-04] MEDS: SENNOSIDES/DOCUSATE 8.6-50 MG 1 EACH TABLET PO SCH (10:17)
[2017-08-04] MEDS: PRENATAL VITAMIN W DHA CAPSULE PO SCH (10:17)
[2017-08-04] MEDS ORDERED: CEFAZOLIN 2 GM/D5W RTU 2 GM/50 ML RTUPB IV SCH (21:00)
--- NOTE | 2017-09-03 15:40 | Operative Report ---
Operative Report DATE OF SURGERY: 07/30/17 PREOPERATIVE DIAGNOSIS: Left femur periprosthetic fracture around the left knee replacement POSTOPERATIVE DIAGNOSIS: Same OPERATION: Retrograde nailing of left periprosthetic fracture around the knee replacement SURGEON: PHILLIP VASQUEZ ANESTHESIA: GA COMPLICATIONS: none ESTIMATED BLOOD LOSS: 150mL INTRAOPERATIVE FINDINGS: As above PROCEDURE: Patient was brought to the operating room and successfully induced. Preoperative antibiotics were given in the holding area prior to bringing to the OR. The left lower extremity was prepped and draped in a normal sterile surgical fashion. Timeout was done identifying the left femur is a correct site. The same midline incision that she had from her prior knee replacement was used and the medial parapatellar approach was done so we can reflect the patella laterally. This exposed the joint and allowed us to place her pin in the box into the distal fragment. C-arm pictures were taken to confirm placement of the pin also made sure that we can reduce and placed the pin into the proximal fragment. We were able to use an opening reamer to allow for access and placement of a guidepin. Guidepin was applied and then reamers were used to confirm diameter size. We also used a ruler to measure the length and also make sure that the guidepin was at the lesser trochanter. We then proceeded to use the proper length nail and able to apply and reduce it over the guidewire and hold it in place. This was done also with a fluoroscopy for guidance. We then proceeded to lock the distal fragment now only using distal screws but also used a bolt knowing that she had osteoporosis and would not have a very significant bite. Mostly was satisfied with our fixation on the distal fragment we then proceeded to use locking screw on the proximal fragment. Final screws were applied after measuring using a depth gauge and the appropriate screw length was placed. AP and laterals were taken of the final fixation. Irrigation was used to clean the wounds and then tissue was approximated especially at the joint with a #1 Vicryl and then 0 Vicryl and 2-0 Vicryl for the dermis and proximal incisions. Staple was used for skin. The leg was cleaned with a sterile saline solution and then Xeroform was applied over the wound and then covered with Xeroform 4 x 4 dressing and ABD pads and overwrapped with a soft roll. Then covered with an Wilder bandage. Patient was placed in a knee immobilizer and the drapes were removed and the patient was then extubated and sent to PACU in stable condition
== END 2017-08-04 12:07 | DRG 481 ==
LOC: ER 14:16 → EH 15:38 → 4W 16:55 → 4N 08-03 16:35
PROVIDERS: ADMIT Internal Medicine Geriatric Medicine; ATTEND Internal Medicine Geriatric Medicine
PROC: 0QHC06Z Insertion of Intramedullary Internal Fixation Device into Left Lower Femur, Open Approach (ICD-10-PCS; principal; 2017-07-30 13:15)
PROC: 30233N1 Transfusion of Nonautologous Red Blood Cells into Peripheral Vein, Percutaneous Approach (ICD-10-PCS; 2017-07-31)
DX: M97.12XA Periprosthetic fracture around internal prosthetic left knee joint, initial encounter (principal); D62 Acute posthemorrhagic anemia; W01.0XXA Fall on same level from slipping, tripping and stumbling without subsequent striking against object, initial encounter; I10 Essential (primary) hypertension; J44.9 Chronic obstructive pulmonary disease, unspecified; E78.00 Pure hypercholesterolemia, unspecified; K59.03 Drug induced constipation; T40.2X5A Adverse effect of other opioids, initial encounter; M18.10 Unilateral primary osteoarthritis of first carpometacarpal joint, unspecified hand; M15.3 Secondary multiple arthritis; Y92.818 Other transport vehicle as the place of occurrence of the external cause; Z96.643 Presence of artificial hip joint, bilateral; Z96.652 Presence of left artificial knee joint; Z60.2 Problems related to living alone; Z79.82 Long term (current) use of aspirin; Z79.899 Other long term (current) drug therapy; Z85.3 Personal history of malignant neoplasm of breast; Z90.710 Acquired absence of both cervix and uterus; Z90.12 Acquired absence of left breast and nipple; Z88.6 Allergy status to analgesic agent; Z88.0 Allergy status to penicillin; Z80.0 Family history of malignant neoplasm of digestive organs; Z83.3 Family history of diabetes mellitus; Z82.3 Family history of stroke; Z82.49 Family history of ischemic heart disease and other diseases of the circulatory system
CPT/HCPCS: 01360; 36415; 36430; 71045; 80048; 80053; 85025; 85027; 85610; 85730; 86850; 86900; 86901; 86920; 93005; 93010; 94799; 96374; 99285; C1713; G8978-GP; G8979-GP; G8987-GO; G8988-GO; J0131; J0330; J0690; J1100; J1170; J2250; J2270; J2370; J2405; J2704; J2765; J3010; J3490; L1830; P9016